=== PATIENT | female | born 1945 | race Caucasian/White ===

== ENCOUNTER → 2017-12-05 09:04 | Outpatient (CLI) | payer MEDICARE, SELFPAY ==
[2017-12-05 11:32] LABS: Microalbumin,Random Urine 16.8 mg/L (NO RANGE EST.); Microalbumin:Creatinine Ratio 13.2 mg/g CRE (<30 mg/g CRE)
[2017-12-05 12:03] LABS: AST(SGOT) 9 U/L (15-37); Alanine Aminotransfer ALT/SGPT 21 U/L (13-56); Albumin, Serum 3.3 g/dL (3.2-5.0); Alkaline Phosphatase 68 U/L (45-117); Anion Gap 7 (5-15); BUN 18 mg/dL (7-18); BUN/Creat Ratio 32.1 RATIO (10-20); Bilirubin, Direct 0.11 mg/dL (0.00-0.30); Calcium,Total 8.4 mg/dL (8.5-10.1); Chloride 106 mmol/L (98-107); Cholesterol 167 mg/dL (200); Creatinine, Serum 0.56 mg/dL (0.55-1.02); EST Glomerular Filtration Rate 113 mL/min (>60); Est Glom Filt Rate - Afr Amer 137 mL/min (>60); Globulin 3.9 g/dL (2.2-4.2); Glucose 178 mg/dL (70-110); High Density Lipoprotein 54 mg/dL; Protein, Total 7.2 g/dL (6.4-8.2); Sodium Level 141 mmol/L (136-145); Thyroid Stim Hormone (TSH) 2.26 uIU/mL (0.358-3.74); Triglycerides 178 mg/dL; Very Low Density Lipoprotein 36 mg/dL (5-40)
== END ==
PROVIDERS: Family Provider Family Medicine; PCP Family Medicine; Visit Provider Family Medicine
DX: E11.9 Type 2 diabetes mellitus without complications (principal)
CPT/HCPCS: 36415; 80048; 80061; 80076; 82043; 82570; 84443

== ENCOUNTER → 2018-11-08 07:43 | Outpatient (CLI) | payer MEDICARE, SELFPAY ==
[2018-11-08 10:42] LABS: AST(SGOT) 16 U/L (15-37); Alanine Aminotransfer ALT/SGPT 28 U/L (13-56); Albumin, Serum 3.5 g/dL (3.2-5.0); Alkaline Phosphatase 57 U/L (45-117); Anion Gap 9 (5-15); BUN 16 mg/dL (7-18); BUN/Creat Ratio 25.5 RATIO (10-20); Calcium,Total 9.1 mg/dL (8.5-10.1); Chloride 103 mmol/L (98-107); Cholesterol 165 mg/dL (200); Creatinine, Serum 0.63 mg/dL (0.55-1.02); EST Glomerular Filtration Rate 99 mL/min (>60); Est Glom Filt Rate - Afr Amer 120 mL/min (>60); Globulin 3.9 g/dL (2.2-4.2); Glucose 185 mg/dL (74-106); High Density Lipoprotein 58 mg/dL; Potassium 3.9 mmol/L (3.5-5.1); Protein, Total 7.4 g/dL (6.4-8.2); Sodium Level 141 mmol/L (136-145); Triglycerides 119 mg/dL; Very Low Density Lipoprotein 24 mg/dL (5-40)
[2018-11-08 10:49] LABS: Microalbumin,Random Urine 81.2 mg/L (NO RANGE EST.)
== END ==
PROVIDERS: Family Provider Family Medicine; PCP Family Medicine; Referring Provider Family Medicine; Visit Provider Family Medicine
DX: E11.9 Type 2 diabetes mellitus without complications (principal)
CPT/HCPCS: 36415; 80048; 80061; 80076; 82043; 82570

== ENCOUNTER 2019-05-20 14:01 | Inpatient (IN) | payer MEDICARE, SELFPAY ==
[2019-05-20] VITALS (9 sets, daily range): BP systolic 113–138; BP diastolic 40–62; PULSE 79–99; RESP 16–20; TEMP 36.6–36.7; O2SAT 95–99; BMI 47.2; BMI 45.8; BMI 45.9
[2019-05-20 14:21] LABS: Bedside Glucose 247 mg/dL (70-110)
--- NOTE | 2019-05-20 14:24 | CT_ITS ---
STUDY: CT BRAIN WITHOUT CONTRAST REASON FOR EXAM: Female, 73 years old. Fall. Syncope. RADIATION DOSAGE (If Supplied By Facility): CTDIvol = ( 44.99 ) mGy, DLP = ( 745.49 ) mGycm TECHNIQUE: Transaxial CT imaging of the brain was performed without administration of intravenous contrast material. Individualized dose optimization techniques were used for this CT. COMPARISON: None. FINDINGS: There is no acute bleed or infarct. There are chronic ischemic and atrophic changes. The ventricles are normal in configuration. There is no hydrocephalus. The visualized paranasal sinuses are clear. The mastoid air cells are well aerated. There is no skull fracture. CT/Brain/Head without Contrast IMPRESSION: No acute intracranial abnormality. Chronic ischemic and atrophic changes. Electronically Signed: Yuri Perez, at 15:08 EDT Tel , Service support ,
--- NOTE | 2019-05-20 14:24 | RAD_ITS ---
STUDY: X-RAY CHEST REASON FOR EXAM: Female, 73 years old. Shortness of breath TECHNIQUE: Frontal view of the chest COMPARISON: None. FINDINGS: The lungs are clear. There are no pleural effusions. There is no pneumothorax. The heart is mildly enlarged. The visualized osseous structures are within normal limits. RAD/Chest 1 View (Portable) IMPRESSION: Mild cardiomegaly. Clear lungs. Electronically Signed: Yuri Perez, at 15:11 EDT Tel , Service support ,
--- NOTE | 2019-05-20 14:25 | EKG12_ITS ---
Test Reason : SNYCOPE Blood Pressure : / mmHG Vent. Rate : 097 BPM Atrial Rate : 097 BPM P-R Int : 182 ms QRS Dur : 130 ms QT Int : 400 ms P-R-T Axes : 021 -13 098 degrees QTc Int : 508 ms Normal sinus rhythm Left bundle branch block Abnormal ECG Confirmed by JERILYN DE ANDA, ARCHIE ([id number]), purchasing expeditor ABILIO JOYCE ([id number]) on 05/22/2019 1:51:37 PM Referred By: RIGO Confirmed By:ARCHIE JEAN-BAPTISTE MD
--- NOTE | 2019-05-20 14:27 | ED.VIS.GEN ---
History of Present Illness Chief Complaint: Dizziness Informant: Patient, Family, [employer] Onset: Today Context: Sudden Onset Timing: Continuous Quality: lightheaded Location: head Current Severity: Moderate Maximum Severity: Severe Worsened by: nothing Relieved by: nothing Associated Symptoms: Lightheaded, left ankle pain, nausea and vomiting Narrative: 73-year-old female presents by squad after syncopal episode. 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 Estimated loss of consciousness 2 minutes by her family who was with her at the time. There is no seizure-like activity. She did not have any prodromal chest pain palpitations or shortness of breath. She was not postictal or incontinent. Patient complains of lightheadedness currently and has had one episode of vomiting. She is not having a headache. No chest pain or shortness of breath. No abdominal pain or back pain. She does complain of left ankle pain from the fall. She denies any other injuries from the fall. She denies any melena or hematochezia, recent medication changes, urinary symptoms or recent illness or hospitalization. She does admit over the past several days has had multiple episodes of loose stool but has not seen blood or noticed black stool. She is not on anticoagulation. Prior similar symptoms: Yes Recent Illness/Hospitalization: No Past Medical History - Allergies and Home Meds Allergies/Adverse Reactions: Allergies Penicillins [PCN] Allergy (Verified 05/20/19 14:11) Rash Primary Care Physician: Trevor Samuel MD [Primary Care Provider] - Prior records reviewed: Yes Past Medical History: - - Diabetes mellitus Lives: With Family Smoking Status: Former smoker Alcohol: None Drugs: None Review of Systems All systems negative except as indicated Gastrointestinal: Reports: Nausea, Vomiting Physical Exam Vital Signs/Narrative: Vital Signs Temp Pulse Resp Pulse Ox 05/20/19 14:03 97.8 F 99 20 H 96 Inital Vital Signs reviewed: Yes General: Well nourished, Well developed, No Acute Distress Head: Normocephalic, Atraumatic Eyes: Perrl, EOMI ENT: Moist mucous membranes Neck: Supple, Nontender Cardiovascular: Regular rate, Regular rhythm Respiratory: No distress, CTA bilaterally, Chest nontender Abdomen: Soft, Nontender, Nondistended, Normal bowel sounds, No masses Back: Nontender Extremities: Nontender, No edema Skin: Normal color, No rash Neurological: Alert, Oriented x3, Cranial nerves II-XII grossly intact, Normal Strength, Normal Sensation Diagnostic/Tx/Re-eval Chest X-Ray - ED: 1 View, Read by ED Physician, Read by Radiologist, No Acute Disease - Rhythm Strip Rhythm Strip: Sinus Rhythm Rate: 97 Ectopy: None - EKG Initial EKG Interpretation: Sinus Rhythm, No Acute Injury Pattern, LBBB Prior: No Prior - Medical Decision Making EKG was sinus rhythm rate of 97 bpm the patient has a left bundle branch block. Previous EKG is available. Vital signs are stable. Patient was given IV fluids. Patient given 1 dose of IV Zofran. Her laboratory work-up including CBC CMP and troponin unremarkable. Chest x-ray shows no acute abnormalities. CT brain shows chronic changes but no acute findings. She has a nondisplaced distal fibular fracture on her left ankle x-ray. Patient feels improved after the Zofran. Patient has no history of syncope. At this time we will admit for further treatment and evaluation secondary to this. She was placed in a walking boot for her ankle fracture. Hospitalist contacted for admission. Patient is hemodynamically stable at this time. ED Disposition - Plan for ED Patient: Disposition: Acute Care Hospital [facility] Diagnosis: Closed left fibular fracture, Syncope, Hyperlipidemia, Hypertension, Type 2 diabetes mellitus Referrals: Trevor Samuel MD [Primary Care Provider] -
--- NOTE | 2019-05-20 14:29 | RAD_ITS ---
STUDY: X-RAY - LEFT ANKLE REASON FOR EXAM: Female, 73 years old. Pain TECHNIQUE: 3 view(s) of the ankle. COMPARISON: None. FINDINGS: There is an oblique fracture of the distal fibula with overlying soft tissue swelling. The remainder of the visualized osseous structures are intact. There are no radiodense foreign bodies. RAD/Ankle min 3 Views IMPRESSION: Oblique fracture of the distal fibula with overlying soft tissue swelling. Electronically Signed: Yuri Perez, at 15:09 EDT Tel , Service support ,
[2019-05-20] MEDS: Ondansetron 4 MG/2 ML Vial IV (14:32)
[2019-05-20 14:36] LABS: Absolute Lymphocyte Count 2.11 X10^3/ul (0.83-4.51); Absolute Neutrophil Count 7.5 X10^3/uL (2.0-7.7); Basophil# 0.02 X10^3/uL; Basophil% 0.2 % (0-1); Eosinophil# 0.08 X10^3/uL; Eosinophils% 0.8 % (0-5); Hematocrit 40.7 % (37-47); Hemoglobin 13.6 g/dl (12.0-15.0); Lymphocyte # 2.11 X10^3/ul (4.0); Lymphocyte % 19.9 % (19-41); Mean Corp Hgb Conc 33.4 g/gl (32-36); Mean Corpuscular Hgb 30.3 pg (27.0-32.0); Mean Corpuscular Volume 90.6 fL (81-99); Mean Platelet Vol. 10.5 fl (6.2-12.0); Monocyte# 0.88 X10^3/uL; Monocyte% 8.3 % (0-10); Neutrophil # 7.48 X10^3/uL (2.7-7.7); Neutrophil % 70.6 % (47-70); POSITIVE COUNT NO; POSITIVE DIFFERENTIAL NO; POSITIVE MORPHOLOGY NO; Platelet Count 223 K/mm3 (150-450); RBC Distribution Width CV 13.8 % (11.6-14.6); RBC Distribution Width SD 45.4 fl (35.1-43.9); Red Blood Count 4.49 M/mm3 (4.2-5.4); White Blood Count 10.6 K/mm3 (4.4-11.0)
[2019-05-20 14:48] LABS: AST(SGOT) 15 U/L (15-37); Alanine Aminotransfer ALT/SGPT 24 U/L (13-56); Albumin, Serum 3.3 g/dL (3.2-5.0); Alkaline Phosphatase 50 U/L (45-117); Anion Gap 10 (5-15); BUN 10 mg/dL (7-18); BUN/Creat Ratio 14.2 RATIO (10-20); Calcium,Total 8.9 mg/dL (8.5-10.1); Chloride 101 mmol/L (98-107); EST Glomerular Filtration Rate 87 mL/min (>60); Est Glom Filt Rate - Afr Amer 105 mL/min (>60); Estimated Creatinine Clearance 40.81 ml/min; Globulin 3.4 g/dL (2.2-4.2); Glucose 209 mg/dL (74-106); Potassium 3.6 mmol/L (3.5-5.1); Protein, Total 6.7 g/dL (6.4-8.2); Sodium Level 134 mmol/L (136-145)
--- NOTE | 2019-05-20 15:47 | PCM.HP.STD ---
<Augusto Plunkett - Last Filed: 05/20/19 15:47> Problem List (1) Syncope Status: Acute (2) Closed left fibular fracture Status: Acute (3) Hiatal hernia Status: Chronic (4) Hyperlipidemia Status: Chronic (5) Hypertension Status: Chronic (6) Type 2 diabetes mellitus Status: Chronic (7) Morbid obesity Status: Chronic History of Present Illness Date of Admission: 05/20/19 Chief Complaint: syncope The patient is a 73 year old F with pmhx of HTN, HLD, hiatal hernia, and DMt2 with morbid obesity, who presented to the ER after a syncopal event today. 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 While working she felt dehydrated, then became lightheaded. She went to sit down and as she laid her head down she lost consciousness. Her son witnessed this. She struck the left posterior aspect of her head and her left ankle on the way down. She was on the ground out for two minutes before spontaneously regaining conscious. She did not have tongue biting, shaking, or loss of continence. She has no headache. She is not post ictal. No seizure or stroke hx. She has passed out before last episode in January 2019 however it was due to hypoglycemia. EMS came to pick her up and noted her pulse was 38. She was brought to the ER and was found to have EKG with LBBB (not clear if this is old or new), left ankle fracture. She states she has no further LH or dizziness. She has a feeling of heartburn ongoing. She has 8/10 left ankle pain. [] Past Medical History Past Medical History (Chronic Problems): Chronic Problems Hiatal hernia (Chronic) Morbid obesity (Chronic) Type 2 diabetes mellitus (Chronic) Hypertension (Chronic) Hyperlipidemia (Chronic) Allergies Penicillins [PCN] Allergy (Verified 05/20/19 14:11) Rash Home Medications: Ambulatory Orders Medication Instructions Recorded Glimepiride 4 mg DAILY 05/20/19 Lisinopril [Zestril] 10 mg DAILY 05/20/19 Lovastatin 20 mg DAILY 05/20/19 Metformin HCl 1,000 mg BID 05/20/19 Semaglutide [Ozempic] 0.5 mg QWEEK 05/20/19 Surgical History: hysterectomy, - - right ankle repair Psychiatric History: No pertinent psych hx 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 Denies: Chest Pain, Edema, Palpitations Respiratory: Denies: Cough, Shortness of breath at rest, Sputum production Gastrointestinal: Denies: Abdominal Pain, Nausea, Vomiting Genitourinary: Denies: Dysuria Musculoskeletal: Denies: Joint Pain, Joint Tenderness Skin: Denies: Rash, Wounds Neurological: Denies: Numbness, Tingling, Focal weakness Psychiatric: Denies: Anxiety, Depression, Homicidal Ideations, Suicidal Ideations Hematologic/ Lymphatic: Denies: Easy Bruising, Easy Bleeding VTE Information - Inpt Only VTE Present on Admission: No VTE Mechan Device Prophylaxis: None VTE Pharm Prophylaxis ordered?: Yes Patient Problems: Active and Suspected Problems Syncope (Acute) Closed left fibular fracture (Acute) - Physical Exam General: Alert, Oriented x3, Cooperative HEENT: Atraumatic, PERRLA, EOMI, Normocephalic Neck: Supple, No JVD, Negative Carotid Bruits Lungs: Clear to auscultation, Normal air movement Cardiovascular: Regular rate, No murmurs Abdomen: Bowel Sounds Present, Soft, Non Tender, Obese - morbidly Extremities: No edema, Capillary Refill Less than 3 Seconds Skin: No rashes, No breakdown Musculoskeletal: No Tenderness to Palpation of Joints or Extremities, - - left ankle swelling, tenderness, ROM limited 2/2 pain. sensation and pulses intact. Neurological: Cranial nerves II-XII grossly intact Psych/Mental Status: Normal Affect, Appropriate, Alert and oriented to time, place, person, mood and affect Vital Signs Temp Pulse Resp BP Pulse Ox 97.8 F 92 16 113/40 L 99 05/20/19 14:03 05/20/19 15:00 05/20/19 15:00 05/20/19 15:00 05/20/19 15:00 Oxygen Delivery Method Room Air Weight: 258 lb 6.108 oz Body Mass Index (BMI) 47.2 Finger Stick Blood Glucose 247 Laboratory Tests Past 24 Hrs 05/20/19 05/20/19 14:15 14:15 WBC 10.6 RBC 4.49 Hgb 13.6 Hct 40.7 MCV 90.6 MCH 30.3 MCHC 33.4 RDW 13.8 RDW Differential 45.4 H Plt Count 223 MPV 10.5 Immature Gran % (Auto) 0.200 Neut % (Auto) 70.6 H Lymph % (Auto) 19.9 Milam % (Auto) 8.3 Eos % (Auto) 0.8 Baso % (Auto) 0.2 Absolute Neuts (auto) 7.5 Absolute Lymphs (auto) 2.11 Total Counted Not Reportable Sodium 134 L Potassium 3.6 Chloride 101 Carbon Dioxide 23.0 Anion Gap 10 BUN 10 Creatinine 0.70 Estim Creat Clear Calc 40.81 Est GFR (MDRD) Af Amer 105 Est GFR (MDRD) Non-Af 87 BUN/Creatinine Ratio 14.2 Glucose 209 H Calcium 8.9 Total Bilirubin 0.50 AST 15 ALT 24 Alkaline Phosphatase 50 Troponin I < 0.015 Total Protein 6.7 Albumin 3.3 Globulin 3.4 Albumin/Globulin Ratio 1.0 POC Glucose 05/20/19 14:16 POC Glucose 247 H Assessment/Plan All Active Problems Syncope (Acute) Closed left fibular fracture (Acute) 1. Syncope - no hypoglycemia, no stroke symptoms, no seizure symptoms. Bradycardia noted on EMS arrival currently none. Troponin negative. Pt felt dehydrated and was working all morning so possibly vasovagal. LBBB on EKG - obtain prior for comparison from PCP tomorrow. Has indegestion too - cycle cardiac enzymes, maintain on tele, and obtain Echo. Check orthostatic vitals. -CT brain negative, CXR neg. 2. Acute oblique left distal fibula fx - pain management, RICE, PTOT, ortho consult 3. HTN / HLD - home meds 4. DMt2 - SSI, hold orals 5. Hx Hiatal hernia - not on ppi DVT ppx: lovenox DC planning: PTOT This patient was seen by Augusto Plunkett PA-C under the supervision of Dr. Betancourt. <Erasto Betancourt - Last Filed: 05/20/19 16:10> History of Present Illness The patient is a 73 year old F [] Past Medical History Allergies Penicillins [PCN] Allergy (Verified 05/20/19 14:11) Rash - Physical Exam Vital Signs Temp Pulse Resp BP Pulse Ox 97.8 F 92 16 113/40 L 99 05/20/19 14:03 05/20/19 15:00 05/20/19 15:00 05/20/19 15:00 05/20/19 15:00 Oxygen Delivery Method Room Air Weight: 258 lb 6.108 oz Body Mass Index (BMI) 47.2 Finger Stick Blood Glucose 247 Laboratory Tests Past 24 Hrs 05/20/19 05/20/19 14:15 14:15 WBC 10.6 RBC 4.49 Hgb 13.6 Hct 40.7 MCV 90.6 MCH 30.3 MCHC 33.4 RDW 13.8 RDW Differential 45.4 H Plt Count 223 MPV 10.5 Immature Gran % (Auto) 0.200 Neut % (Auto) 70.6 H Lymph % (Auto) 19.9 Milam % (Auto) 8.3 Eos % (Auto) 0.8 Baso % (Auto) 0.2 Absolute Neuts (auto) 7.5 Absolute Lymphs (auto) 2.11 Total Counted Not Reportable Sodium 134 L Potassium 3.6 Chloride 101 Carbon Dioxide 23.0 Anion Gap 10 BUN 10 Creatinine 0.70 Estim Creat Clear Calc 40.81 Est GFR (MDRD) Af Amer 105 Est GFR (MDRD) Non-Af 87 BUN/Creatinine Ratio 14.2 Glucose 209 H Calcium 8.9 Total Bilirubin 0.50 AST 15 ALT 24 Alkaline Phosphatase 50 Troponin I < 0.015 Total Protein 6.7 Albumin 3.3 Globulin 3.4 Albumin/Globulin Ratio 1.0 POC Glucose 05/20/19 14:16 POC Glucose 247 H Assessment/Plan Hospitalist note: I am seeing this patient in conjunction with Augusto Plunkett. I independently seen and examined the patient. History and physical, laboratory data and imaging studies reviewed and I concur with the above admission and treatment plan. Patient presented to the emergency room because of syncopal episode. 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 Her son mentioned that she struck her left posterior head and left ankle on the way down. She lost her consciousness for about 2 minutes and she regained her consciousness after 2 minutes approximately. There was no reported seizure activity, tongue biting or stool or urine incontinence. Reportedly according to the EMS, her heart rate was 38 bpm. She complained of heartburn and she threw up twice. In the emergency department, her vital signs were stable, heart rate has been in the 80s to 90s. Her routine blood work was unremarkable. Her EKG revealed normal sinus rhythm, left bundle branch block, no acute ischemic changes and no old EKG to compare. Troponin was negative. LFT was normal. CT scan brain showed no acute findings. Chest x-ray showed myocardial, no acute findings. Patient complained of left ankle pain, x-ray, and revealed oblique fracture of the distal left fibula. She is being admitted for syncope and left fibular fracture. - Physical Exam General: Alert, Oriented x3, Cooperative, No apparent distress. HEENT: Atraumatic, PERRLA, EOMI. Neck: Supple, No JVD, Negative Carotid Bruits, Trachea Midline, Thyroid Normal. Lungs: Clear to auscultation, Normal air movement, No rhonchi, No wheeze, No rales. Cardiovascular: Regular rate, Regular Rhythm, Normal S1, Normal S2, PMI Normal. Abdomen: Bowel Sounds Present, Soft, Non Tender, Non-Distended, No Hepato-splenomegaly. Extremities: No clubbing, No cyanosis, No edema Skin: No rashes, No breakdown Neurological: Cranial nerves are intact, normal power and tone, neuro grossly intact Vital Signs are stable. Assessment and plan: #1 syncopal episode: Could be due to vasovagal syncope. Patient has been walking on morning and she reported diarrhea over the last couple of days. Also, heart rate was in the 38 by EMS upon arrival. Since she was in the ER, heart has been stable. Blood pressure stable. She is afebrile. EKG reviewed as above as well as CT scan brain. Patient complains of heartburn. Plan: Admit to PCU for observation, cardiac monitoring, serial cardiac enzymes, obtain old EKG from PCPs office, 2D echocardiogram, IV fluids, orthostatic vitals, TSH, start Protonix, Mylanta as needed. #2 acute traumatic oblique fracture of the distal left fibula: Plan for OxyIR and IV morphine as needed, orthopedic surgery consult. #3 other chronic medical problems, stable, continue current medication as above. This note was generated with [employer] software. It may contain incorrect words, spelling, and punctuation that were not noted in checking the note before signing. Code Visit OBSV E&M: 56507 Initial observation care L3
[2019-05-20] MEDS: Famotidine 20 MG Tablet 40 MG PO (15:50)
[2019-05-20 16:07] LABS: Bacteria 0 SEEN /hpf (None Seen); Mucous, Urine 0 SEEN /hpf (<or=2+); Red Blood Cells-Urine 0 SEEN /hpf (0-5); White Blood Cells 0 SEEN /hpf (0-5)
[2019-05-20 16:09] LABS: Color, Urine Yellow (Yellow); Glucose, Dipstick 1000 mg/dl (Normal); Leukocyte Esterase-Dipstick Negative /ul (Negative); Nitrite-Dipstick Negative (Negative); Occult Blood-Urine Negative /ul (Negative); Protein-Dipstick 30 mg/dl (Negative); Urine Bilirubin Dipstick Negative (Negative); Urine Clarity Clear (Clear); Urine Urobilinogen Normal (Normal)
[2019-05-20 16:11] LABS: Ketone-Dipstick 150 mg/dl (Negative)
[2019-05-20 16:15] LABS: Squamous Epithelial Cells - UA 0-5 SEEN /hpf (5-10)
--- NOTE | 2019-05-20 17:10 | ECHOD_ITS ---
Reason For Study: SYNCOPE Procedure This was a 2D Doppler, Color Flow transthoracic echocardiogram. Exam performed portable in patient room. Left Ventricle Normal LV size. The estimated ejection fraction is 55 %. Stage 1 diastolic dysfunction. No regional wall motion abnormalities noted. Right Ventricle Normal RV size. Normal systolic function. Atria The left atrium is moderately enlarged. Normal right atrium. Mitral Valve Normal mitral valve. Tricuspid Valve Normal tricuspid valve. Mild (1+) tricuspid valve insufficiency. Pulmonary artery systolic pressure is 28 mmHg. Aortic Valve Normal aortic valve. Pulmonic Valve Normal pulmonic valve. Great Vessels Normal aortic root. The pulmonary artery is normal size. Normal inferior vena cava. Pericardium/Pleural No pericardial effusion. MMode/2D Measurements & Calculations LVIDd: 4.7 cm IVSd: 0.98 cm Ao root diam: 3.5 cm LVIDs: 3.3 cm LVPWd: 0.84 cm RVDd: 4.1 cm FS: 31.2 % LAV(MOD-bp): 73.1 ml LA A4 area: 25.2 cm2 LA dimension(2D): 4.1 cm LAV(MOD-bp) Indexed: 34.3 ml/m2 LAV(MOD-sp2): 58.6 ml LAV(MOD-sp4): 78.1 ml RA A4 area: 19.3 cm2 Time Measurements MV dec time: 0.23 sec Doppler Measurements & Calculations MV E max ifeanyi: 110.1 cm/sec Lat Peak E' Ifeanyi: 8.3 cm/sec Med Peak E' Ifeanyi: 4.4 cm/sec MV A max ifeanyi: 131.7 cm/sec E/E' lat: 13.2 E/E' med: 25.1 MV E/A: 0.84 Ao V2 max: 130.4 cm/sec LV V1 max: 107.5 cm/sec PA V2 max: 116.4 cm/sec Ao max P.8 mmHg LV V1 max P.6 mmHg PI end-d ifeanyi: 90.1 cm/sec TR max ifeanyi: 245.5 cm/sec TR max P.1 mmHg Interpretation Summary Normal LV size. The estimated ejection fraction is 55 %. Mild (1+) tricuspid valve insufficiency. Pulmonary artery systolic pressure is 28 mmHg. The left atrium is moderately enlarged. Stage 1 diastolic dysfunction. Ordering Physician: Erasto Betancourt Referring Physician: KOLBY RUSSO Performed By: Luzmaria Garland RDCS, RVT
[2019-05-20 17:50] LABS: Bedside Glucose 186 mg/dL (70-110)
[2019-05-20 17:54] LABS: Thyroid Stim Hormone (TSH) 1.67 uIU/mL (0.358-3.74)
[2019-05-20] MEDS: Insulin Lispro 100 UNIT/ML INSULN.PEN SC (18:18)
[2019-05-20] MEDS: 0.9% Normal Saline 1,000 ML 100 ML IV (18:18)
--- NOTE | 2019-05-20 18:59 | EKG12_ITS ---
Test Reason : CP Blood Pressure : / mmHG Vent. Rate : 094 BPM Atrial Rate : 094 BPM P-R Int : 194 ms QRS Dur : 128 ms QT Int : 410 ms P-R-T Axes : 041 -34 079 degrees QTc Int : 512 ms Normal sinus rhythm Left axis deviation Left bundle branch block Abnormal ECG When compared with ECG of 20-MAY-2019 14:07, MANUAL COMPARISON REQUIRED, DATA IS UNCONFIRMED Confirmed by JERILYN DE ANDA, ARCHIE ([id number]), editor department ABILIO JOYCE ([id number]) on 05/23/2019 11:19:31 AM Referred By: BIANCA Confirmed By:ARCHIE JEAN-BAPTISTE MD
[2019-05-20] MEDS: Acetaminophen 325 MG Tablet 650 MG PO (19:05)
[2019-05-20] MEDS: Mag Hydrox/Al Hydrox/Simeth 30 ML UDC PO (21:42)
[2019-05-20] MEDS: Morphine 2 MG/ML Syringe IV (21:42)
[2019-05-20] MEDS: Atorvastatin Calcium 10 MG Tablet 5 MG PO (21:43)
[2019-05-20 22:01] LABS: Bedside Glucose 123 mg/dL (70-110)
[2019-05-21] VITALS (12 sets, daily range): BP systolic 118–123; BP diastolic 51–76; PULSE 68–85; RESP 16–18; TEMP 36.3–37.1; O2SAT 95–97
[2019-05-21] MEDS: Ondansetron 4 MG/2 ML Vial IV ×4 (00:06→23:00)
[2019-05-21] MEDS: Morphine 2 MG/ML Syringe IV ×2 (00:06→04:12)
[2019-05-21] MEDS: 0.9% NaCl Peripheral Flush Adult/Peds IV (00:07)
[2019-05-21] MEDS: 0.9% Normal Saline 1,000 ML 100 ML IV (04:15)
[2019-05-21] MEDS: Insulin Lispro 100 UNIT/ML INSULN.PEN SC ×2 (07:02→11:48)
[2019-05-21 07:10] LABS: Bedside Glucose 174 mg/dL (70-110)
[2019-05-21] MEDS: Glimepiride 4 MG Tablet PO (08:25)
[2019-05-21] MEDS: Enoxaparin 40 MG/0.4 ML Syringe SC (09:55)
[2019-05-21] MEDS: Pantoprazole Sodium 40 MG Tablet PO (09:55)
[2019-05-21] MEDS: Lisinopril 10 MG Tablet PO (09:55)
[2019-05-21] MEDS: metFORMIN HCl 1,000 MG Tablet 1000 MG PO ×2 (09:55→16:08)
[2019-05-21 11:15] LABS: Bedside Glucose 151 mg/dL (70-110)
--- NOTE | 2019-05-21 12:14 | PN_ITS ---
Patient Problems: Active and Suspected Problems Syncope (Acute) Closed left fibular fracture (Acute) Subjective: Pt resting comfortably in bed NAD. No dizziness/LH. Reports a brief episode of CP this AM while in bed. Midsternal radiating in to the back with associated nausea. Left leg pain improved. None at rest. No palp. Had echo this AM. - Physical Exam General: Alert, Oriented x3, Cooperative HEENT: Atraumatic, PERRLA, EOMI, Normocephalic Neck: Supple, No JVD, Negative Carotid Bruits Lungs: Clear to auscultation, Normal air movement Cardiovascular: Regular rate, Murmur - unchanged Abdomen: Bowel Sounds Present, Soft, Non Tender Extremities: No edema, Capillary Refill Less than 3 Seconds Skin: No rashes, No breakdown Musculoskeletal: No Tenderness to Palpation of Joints or Extremities Neurological: Cranial nerves II-XII grossly intact Psych/Mental Status: Normal Affect, Appropriate Vital Signs Temp Pulse Resp BP Pulse Ox 97.4 F L 69 18 122/65 H 97 05/21/19 08:12 05/21/19 08:12 05/21/19 08:12 05/21/19 08:12 05/21/19 08:12 Oxygen Delivery Method Room Air Weight: 250 lb 14.177 oz Body Mass Index (BMI) 45.8 Finger Stick Blood Glucose 247 Intake and Output for Last 24 Hours 05/19/19 05/20/19 05/21/19 23:59 23:59 23:59 Intake Total 578 / 578 2511 / 2511 Output Total 1900 / 1900 Balance 578 / 578 611 / 611 Laboratory Tests Past 24 Hrs 05/20/19 05/20/19 05/20/19 14:15 14:15 14:15 WBC 10.6 RBC 4.49 Hgb 13.6 Hct 40.7 MCV 90.6 MCH 30.3 MCHC 33.4 RDW 13.8 RDW Differential 45.4 H Plt Count 223 MPV 10.5 Immature Gran % (Auto) 0.200 Neut % (Auto) 70.6 H Lymph % (Auto) 19.9 Band[place] % (Auto) 8.3 Eos % (Auto) 0.8 Baso % (Auto) 0.2 Absolute Neuts (auto) 7.5 Absolute Lymphs (auto) 2.11 Total Counted Not Reportable Sodium 134 L Potassium 3.6 Chloride 101 Carbon Dioxide 23.0 Anion Gap 10 BUN 10 Creatinine 0.70 Estim Creat Clear Calc 40.81 Est GFR (MDRD) Af Amer 105 Est GFR (MDRD) Non-Af 87 BUN/Creatinine Ratio 14.2 Glucose 209 H Calcium 8.9 Total Bilirubin 0.50 AST 15 ALT 24 Alkaline Phosphatase 50 Troponin I < 0.015 Total Protein 6.7 Albumin 3.3 Globulin 3.4 Albumin/Globulin Ratio 1.0 TSH 1.67 Urine Color Urine Clarity Urine pH Ur Specific [place] Urine Protein Urine Glucose (UA) Urine Ketones Urine Occult Blood Urine Nitrite Urine Bilirubin Urine Urobilinogen Ur Leukocyte Esterase Urine RBC Urine WBC Ur Squamous Epith Cells Urine Bacteria Urine Mucus 05/20/19 05/20/19 05/20/19 15:55 17:50 20:30 WBC RBC Hgb Hct MCV MCH MCHC RDW RDW Differential Plt Count MPV Immature Gran % (Auto) Neut % (Auto) Lymph % (Auto) [place] % (Auto) Eos % (Auto) Baso % (Auto) Absolute Neuts (auto) Absolute Lymphs (auto) Total Counted Sodium Potassium Chloride Carbon Dioxide Anion Gap BUN Creatinine Estim Creat Clear Calc Est GFR (MDRD) Af Amer Est GFR (MDRD) Non-Af BUN/Creatinine Ratio Glucose Calcium Total Bilirubin AST ALT Alkaline Phosphatase Troponin I < 0.015 < 0.015 Total Protein Albumin Globulin Albumin/Globulin Ratio TSH Urine Color Yellow Urine Clarity Clear Urine pH 5.0 Ur Specific [place] 1.020 Urine Protein 30 H Urine Glucose (UA) 1000 H Urine Ketones 150 H Urine Occult Blood Negative Urine Nitrite Negative Urine Bilirubin Negative Urine Urobilinogen Normal Ur Leukocyte Esterase Negative Urine RBC 0 SEEN Urine WBC 0 SEEN Ur Squamous Epith Cells 0-5 SEEN Urine Bacteria 0 SEEN Urine Mucus 0 SEEN POC Glucose 05/21/19 05/21/19 05/20/19 11:11 06:59 21:48 POC Glucose 151 H 174 H 123 H 05/20/19 05/20/19 17:44 14:16 POC Glucose 186 H 247 H Medical Necessity - Tobacco Use Smoking Status: Former smoker Tobacco Use: Non-smoker Assessment/Plan All Active Problems Syncope (Acute) Closed left fibular fracture (Acute) 1. Syncope - no hypoglycemia, no stroke symptoms, no seizure symptoms. Bradycardia noted on EMS arrival - 38bpm. currently none. No brenda overnight. Trop neg. Chest pain this AM. No prior EKGs at PCPs office. Consult Cardiology. Echo pending. CT brain with chronic changes. 2. Acute oblique left distal fibula fx - pain management, LEA, PTOT, ortho consult pending. 3. HTN / HLD - home meds 4. DMt2 with morbid obesity - SSI, hold orals 5. Hx Hiatal hernia - not on ppi. May be contributing to CP this AM. DVT ppx: lovenox DC planning: PTOT This patient was seen by Augusto Plunkett PA-C under the supervision of Dr. Mitchell.
[2019-05-21] MEDS: oxyCODONE 5 MG Tablet PO ×2 (16:04→22:59)
[2019-05-21 16:15] LABS: Bedside Glucose 91 mg/dL (70-110)
--- NOTE | 2019-05-21 16:31 | CON.PCM_ITS ---
Reason for Consult Date of Consultation: 05/21/19 Reason for Consultation: Syncopal episode History of Present Illness: The patient is a 73 year old F with medical history consisting of of HTN, HLD, hiatal hernia, and DMt2 with morbid obesity, who presented to the ER after a syncopal event today. 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 While working she felt dehydrated, then became lightheaded. She went to sit down and as she laid her head down she lost consciousness. Her son witnessed this. She struck the left posterior aspect of her head and her left ankle on the way down. She was on the ground out for two minutes before spontaneously regaining conscious. She did not have tongue biting, shaking, or loss of continence. She has no headache. She is not post ictal. No seizure or stroke hx. She has passed out before last episode in January 2019 however it was thought to be due to hypoglycemia. EMS came to pick her up and noted her pulse was 38. She was brought to the ER and was found to have EKG with LBBB (not clear if this is old or new), left ankle fracture. She states she has no further LH or dizziness. She has a feeling of heartburn ongoing. Cardiology was called to see her due to the left bundle branch block. At this particular time she is asymptomatic. Past Medical History Allergies/Adverse Reactions: Allergies Penicillins [PCN] Allergy (Verified 05/20/19 14:11) Rash Home Medications: Ambulatory Orders Medication Instructions Recorded Glimepiride 4 mg PO DAILY 05/20/19 Lisinopril [Zestril] 10 mg PO DAILY 05/20/19 Lovastatin 20 mg PO DAILY 05/20/19 Metformin HCl 1,000 mg PO BID 05/20/19 [place]-3 Fatty Acids/Fish Oil [Fish 1 ea PO DAILY 05/20/19 Oil 1,000 mg Capsule] Semaglutide [Ozempic] 0.5 mg SQ QWEEK 05/20/19 Past Medical History (Chronic Problems): Chronic Problems Hiatal hernia (Chronic) Morbid obesity (Chronic) Type 2 diabetes mellitus (Chronic) Hypertension (Chronic) Hyperlipidemia (Chronic) Surgical History: hysterectomy, - - right ankle repair Psychiatric History: No pertinent psych hx 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 Denies: Chest Discomfort, Shortness of Breath, Orthopnea, PND, Peripheral Edema, Palpitations, Lightheadedness, Dizziness, Near Syncope Respiratory: Denies: Cough, Sputum Production, Hemoptysis Gastrointestinal: Denies: Hematemesis, Hematochezia, Melena Genitourinary: Denies: Dysuria, Hematuria Muscoloskeletal: Denies: Myalgias Skin: Denies: Rash Neurological: Reports: Dizziness Psychiatric: Denies: Anxiety Endocrine: Denies: Unexplained Weight Loss Hematologic/ Lymphatic: Denies: Anemia Subjectve: Pleasant lady in no apparent distress sitting in chair Objective: Vital Signs Temp Pulse Resp BP Pulse Ox 98.1 F 72 18 118/54 L 97 05/21/19 14:08 05/21/19 15:39 05/21/19 14:08 05/21/19 14:08 05/21/19 14:08 Oxygen Delivery Method Room Air Weight: 250 lb 14.177 oz Body Mass Index (BMI) 45.8 Finger Stick Blood Glucose 247 Intake and Output for Last 24 Hours 05/19/19 05/20/19 05/21/19 23:59 23:59 23:59 Intake Total 578 / 578 2511 / 2511 Output Total 1900 / 1900 Balance 578 / 578 611 / 611 General: Awake, Alert, Oriented x 3 HEENT: PERRL, EOMI, Sclera Non Icteric Neck: Supple, Good ROM, No Lymph Node Enlargement Lungs: Clear to auscultation Cardiovascular: Regular Rhythm, Normal S1, Normal S2, No Murmurs, No Rubs, No Gallops Vascular: No Carotid Bruits, Normal Femoral Pulses, Normal Radial Pulses, Normal Dorsalis Pedal Pulse, Normal Posterior Tibial Pulses Abdomen: Bowel Sounds Present, Soft, Non Tender, No HSM, No Organomegaly Extremities: No Cyanosis, No Clubbing, No edema Musculoskeletal: No Erythema Skin: No Rashes Lymphatic: No Lymph Node Enlargement Neurological: No Focal Motor or Sensory Deficit Psych/Mental Status: Appropriate 05/20/19 17:50: Troponin I < 0.015 05/20/19 20:30: Troponin I < 0.015 Rhythm: EKG: Sinus rhythm with a left bundle branch block. Initial EKG in the emergency squad demonstrated sinus rhythm with high-grade AV block and a left bundle branch block pattern. ECHO: Preserved left ventricular systolic function estimated ejection fraction 55%. Assessment/Plan 1. Syncope * Patient presents with syncope with a left bundle branch block the duration of which is unclear as well as intermittent high-grade AV block. I suspect that this is the etiology of her syncopal spell. She has not had previous documentation of this. Her most recent echocardiogram also demonstrates mild left ventricular ejection fraction. * My recommendation would be to proceed with a dual-chamber permanent pacemaker and then further work-up for her atypical chest pain can be entertained. I have discussed this with her as well as her relatives they understand and agreed to proceed and this would be undertaken in a.m. * * Thank you for allowing me to participate in the care of your patient. Please don't hesitate to call if any issues arise *
--- NOTE | 2019-05-21 17:05 | CON.PCM_ITS ---
Problem List (1) Closed left fibular fracture Status: Acute Reason for Consult Date of Consultation: 05/21/19 Reason for Consultation: Left ankle injury History of Present Illness: The patient is a 73 year old F [who was helping her son paint yesterday May 20, 2019. She felt like she was having a low blood sugar attacks so she decided to drink some iced tea. She was rounding the corner at that time and that is the last she remembers. Apparently she had a syncopal event at that time. She was taken to [facility] and x-rays revealed an ankle fracture. Orthopedics was consulted. She has been in a short leg posterior splint. The ankle pain is improving. It is primarily at the lateral aspect of the left ankle. The left ankle was normal and pain-free prior to the injury. She has been nonweightbearing. No knee or hip pain at this time. No new numbness or tingling into the left lower extremity. 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 No fevers, chills, other signs of infection. She is having a pacemaker placed tomorrow due to a third-degree heart block..] Past Medical History Past Medical History (Chronic Problems): Chronic Problems Hiatal hernia (Chronic) Morbid obesity (Chronic) Type 2 diabetes mellitus (Chronic) Hypertension (Chronic) Hyperlipidemia (Chronic) Allergies Penicillins [PCN] Allergy (Verified 05/20/19 14:11) Rash Home Medications: Ambulatory Orders Medication Instructions Recorded Glimepiride 4 mg PO DAILY 05/20/19 Lisinopril [Zestril] 10 mg PO DAILY 05/20/19 Lovastatin 20 mg PO DAILY 05/20/19 Metformin HCl 1,000 mg PO BID 05/20/19 [place]-3 Fatty Acids/Fish Oil [Fish 1 ea PO DAILY 05/20/19 Oil 1,000 mg Capsule] Semaglutide [Ozempic] 0.5 mg SQ QWEEK 05/20/19 Surgical History: hysterectomy, - - right ankle repair Psychiatric History: No pertinent psych hx DATA SECURITY CONSULTANT History: No pertinent DATA SECURITY CONSULTANT history Lives: Spouse/ Significant Other Smoking Status: Former smoker Tobacco Use: Non-smoker Alcohol: None Drugs: None - *Family History Maternal History Items: No pertinent history Paternal History Items: No pertinent history Review of Systems Comment: Review of systems are documented in the medical record electronically and were personally reviewed Patient Problems: Active and Suspected Problems Syncope (Acute) Closed left fibular fracture (Acute) Objective: The patient is alert and oriented x3. No acute distress at rest. Breathing easily without respiratory distress. She is resting supine in the hospital bed during the exam. Inspection of left lower extremity is without gross deformity. Gentle range of motion left hip without pain. Left knee without tenderness to palpation. Gentle range of motion left knee without pain. Without calf pain or tenderness bilaterally. There is an intact short leg posterior fiberglass splint on the left ankle. It is without evidence of pressure points or breakdown. Patient is able to gently flex and extend the toes. Capillary refill is less than 3 seconds. Sensation is intact to light touch. Neurovascularly intact. Through the splint she is without tenderness to palpation over the medial malleolus. She is with tenderness to palpation over the lateral malleolus re-creating chief complaint of left ankle pain. - Physical Exam Vital Signs Temp Pulse Resp BP Pulse Ox 98.1 F 72 18 118/54 L 97 05/21/19 14:08 05/21/19 15:39 05/21/19 14:08 05/21/19 14:08 05/21/19 14:08 Oxygen Delivery Method Room Air Weight: 113.8 kg Body Mass Index (BMI) 45.8 Finger Stick Blood Glucose 247 Intake and Output for Last 24 Hours 05/19/19 05/20/19 05/21/19 23:59 23:59 23:59 Intake Total 578 / 578 2511 / 2511 Output Total 1900 / 1900 Balance 578 / 578 611 / 611 Laboratory Tests Past 24 Hrs 05/20/19 05/20/19 05/20/19 14:15 17:50 20:30 Troponin I < 0.015 < 0.015 TSH 1.67 POC Glucose 05/21/19 05/21/19 05/21/19 16:07 11:11 06:59 POC Glucose 91 151 H 174 H 05/20/19 05/20/19 21:48 17:44 POC Glucose 123 H 186 H Assessment/Plan All Active Problems Syncope (Acute) Closed left fibular fracture (Acute) Diagnostic studies x-rays of left ankle dated 05/20/2019 were discussed and reviewed with Dr. Toi Ojeda and are consistent with minimally displaced oblique fracture of the lateral malleolus on the left without evidence of ankle mortise widening or medial clear space All previous laboratory results were reviewed. Impression: Minimally displaced oblique fracture of the lateral malleolus left ankle Third-degree heart block Hiatal hernia Diabetes mellitus type 2 Obesity Hypertension Hyperlipidemia Plan: Discussed and reviewed all treatment options with the patient her family as well as Dr. Toi Ojeda. At this time we did recommend conservative nonoperative treatment. She is comfortable in the current posterior splint she is in. She will continue with a nonweightbearing status. Rest ice elevate for any pain or swelling. Tylenol as needed for pain control. No greater than 3000 mg/day. Recommend follow-up with [facility] 7 to 10 days with repeat x-rays. Anticipate considering transitioning her to a cam boot upon follow-up. She recognizes that she will likely be nonweightbearing for 4 to 6 weeks. Patient did deny a history of nicotine dependence. I stressed the importance of tight control of her blood sugars for fracture healing. She voiced understanding. She is orthopedically stable and okay for discharge when she is cleared medically. Please do not hesitate to contact us with any further orthopedic concerns.
[2019-05-21] MEDS: Atorvastatin Calcium 10 MG Tablet 5 MG PO (21:34)
[2019-05-21 21:56] LABS: M R Staph aureus DNA By PCR Negative (Negative); Probe Check PASS; Specimen Processing Control PASS
[2019-05-21 23:15] LABS: Bedside Glucose 137 mg/dL (70-110)
[2019-05-22] VITALS (14 sets, daily range): BP systolic 111–154; BP diastolic 51–72; PULSE 67–95; RESP 14–16; TEMP 36.6–36.9; O2SAT 94–99
[2019-05-22] MEDS: oxyCODONE 5 MG Tablet PO ×3 (05:09→21:02)
[2019-05-22 06:45] LABS: Bedside Glucose 137 mg/dL (70-110)
[2019-05-22] MEDS: Ondansetron 4 MG/2 ML Vial IV ×2 (06:51→21:02)
[2019-05-22] MEDS: Lisinopril 10 MG Tablet PO (10:28)
[2019-05-22] MEDS: Ketorolac 15 MG/ML Vial IV (10:34)
[2019-05-22 11:16] LABS: Bedside Glucose 144 mg/dL (70-110)
[2019-05-22] MEDS: 0.9% Normal Saline 1,000 ML 15 ML IV (11:30)
--- NOTE | 2019-05-22 13:37 | CL.IE_ITS ---
Patient: LUCIANO BIGGS Study Date: 05/22/2019 Performing: Chaitanya Sethi MD : [id number] Age: 73 Gender: female PROCEDURES PERFORMED [id number] PACER INSERT+DUAL LEADS INDICATIONS Atrioventricular (AV) block PROCEDURE DETAILS The patient was brought to the Catheterization Lab in the postabsorptive nonsedated state. [facility] to the procedure. Local anesthetic was given subcutaneously to the le ft upper chest area with Lidocaine 2%. Incision was made to the left upper chest. Access was achieved and a guidewire was advanced into the left subclavian vein. PPM ventricular lead was inserted / posi tioned to right ventricular septal wall. PPM ventricular lead testing performed. PPM ventricular lead testing performed. PPM atrial lead was inserted / positioned to the right atrial appendage. PPM atri al lead testing performed. The Atrial lead sutured in place with 2-0 Silk. The Ventricular PM lead gordon tured in place with 2-0 Silk. PPM generator was then interrogated by the net programmer. Device pocket wa s irrigated with antibiotic Bacitracin. PPM generator was attached to the lead(s) and inserted into t he pocket. Subcutaneous closure was completed with 3-0 Vicryl. Skin closure was completed with 4-0 Vicryl. Steri-strips applied to Lt chest area. The patient tolerated the procedure well. Estimated Blood Loss: < 10 mls IMPLANTED / EX-PLANTED DEVICES IMPLANTED DEVICE(S): PPM Ventricular lead - Fighting Vehicle Systems Maintainer: [employer], Model # Ingevity MRI 7741 , Serial # [id number] PPM Atrial lead - [employer] Vehicle Systems Maintainer: [employer], Model # Ingevity MRI 7740 , Serial # [id number] PPM Generator - [employer] Vehicle Systems Maintainer: [employer], Model # Essentio MRI DR L111, Serial # [id number] DEVICE PARAMETERS ATRIAL LEAD PARAMETERS: P wave- 1.9 (mV) Current- 1.9 (mA) threshold- 1.1 (V) impedence- 601 (OHMS) VENTRICULAR LEAD PARAMETERS: R wave- 9.1 (mV) Current- 0.6 (mA) threshold- 0.4 (V) impedence- 711 (OHMS) DEVICE PARAMETERS: Mode- DDD Lower rate- 60 Upper rate- 130 CONCLUSIONS / RECOMMENDATIONS Device Conclusions: Successful implantation of a dual chamber pacemaker Device Recommendations: Follow up with Primary Care Physician PROCEDURE MEDICATIONS Versed 1 mg IV Fentanyl 25 mcg IV Fentanyl 25 mcg IV Fentanyl 25 mcg IV Oxygen: 2 L/min via nasal cannula Antibiotic given in appropriate timeframe. Signed By Chaitanya Sethi MD On 05/22/2019 13:36:37 Chaitanya Sethi MD
--- NOTE | 2019-05-22 13:52 | CASEMGMT ---
RN CM Note: several attempts to complete RN CM Assessment. Pt is @ procedure for pacemaker placement. noted in PT notes pt will need wheeled walker. Script signed. Tomasa is [employer] with [employer]. Pt does not have out of pocket benefits, so will need to stay with [employer] provider. Ginny SILVAN RN ACM
--- NOTE | 2019-05-22 13:53 | PCM.PROGNOTE ---
Patient Problems: Active and Suspected Problems Syncope (Acute) Closed left fibular fracture (Acute) Subjective: Patient seen and examined prior to pacemaker implantation. This morning she had no dizziness, lightheadedness, shortness of breath, lower extremity edema, chest pain. She is agreeable to pacemaker placement. She underwent this later in the day successfully. She will be monitored overnight. - Physical Exam General: Alert, Oriented x3, Cooperative HEENT: Atraumatic, PERRLA, EOMI, Normocephalic Neck: Supple, No JVD, Negative Carotid Bruits Lungs: Clear to auscultation, Normal air movement Cardiovascular: Regular rate, No murmurs Abdomen: Bowel Sounds Present, Soft, Non Tender Extremities: No edema, Capillary Refill Less than 3 Seconds Skin: No rashes, No breakdown Musculoskeletal: No Tenderness to Palpation of Joints or Extremities Neurological: Cranial nerves II-XII grossly intact Psych/Mental Status: Normal Affect, Appropriate, Alert and oriented to time, place, person, mood and affect Vital Signs Temp Pulse Resp BP Pulse Ox 98.5 F 77 16 111/56 L 99 05/22/19 10:25 05/22/19 10:25 05/22/19 10:25 05/22/19 10:25 05/22/19 10:25 Oxygen Delivery Method Room Air Weight: 250 lb 14.177 oz Body Mass Index (BMI) 45.8 Finger Stick Blood Glucose 247 Intake and Output for Last 24 Hours 05/20/19 05/21/19 05/22/19 23:59 23:59 23:59 Intake Total 578 / 578 3471 / 3471 Output Total 1902 / 1902 Balance 578 / 578 1569 / 1569 Laboratory Tests Past 24 Hrs 05/21/19 Unknown MRSA (PCR) Negative POC Glucose 05/22/19 05/22/19 05/21/19 11:09 06:26 22:56 POC Glucose 144 H 137 H 137 H 05/21/19 16:07 POC Glucose 91 Medical Necessity - Tobacco Use Smoking Status: Former smoker Tobacco Use: Non-smoker Assessment/Plan All Active Problems Syncope (Acute) Closed left fibular fracture (Acute) 1. Syncope - no hypoglycemia, no stroke symptoms, no seizure symptoms. Bradycardia noted on EMS arrival - 38bpm, and third-degree heart block. currently none. No brenda overnight. Trop neg. Chest pain this AM. No prior EKGs at PCPs office. Consult Cardiology. Echo with EF of 55%, stage I diastolic dysfunction, PASP of 28 mmHg, stage I diastolic dysfunction. CT brain with chronic changes. -Successful pacemaker placement today. -We will need ischemic work-up. 2. Acute oblique left distal fibula fx -patient will follow-up as an outpatient, we will not likely have surgery, plan for cast as an outpatient follow-up. 3. HTN / HLD - home meds 4. DMt2 with morbid obesity - SSI, hold orals 5. Hx Hiatal hernia - not on ppi. DVT ppx: lovenox DC planning: PTOT This patient was seen by Augusto Plunkett PA-C under the supervision of Dr. Mitchell.
[2019-05-22] MEDS: Glimepiride 4 MG Tablet PO (14:51)
[2019-05-22] MEDS: metFORMIN HCl 1,000 MG Tablet 1000 MG PO (14:51)
[2019-05-22] MEDS: Pantoprazole Sodium 40 MG Tablet PO (14:51)
--- NOTE | 2019-05-22 15:01 | CASEMGMT ---
RN CM Note: attempted to see pt for RN CM Assessment post procedure. Nursing is with pt. Will defer assessment until tomorrow. Ginny SILVAN RN ACM
[2019-05-22 15:36] LABS: Bedside Glucose 111 mg/dL (70-110)
[2019-05-22] MEDS: Atorvastatin Calcium 10 MG Tablet 5 MG PO (21:02)
[2019-05-22 22:45] LABS: Bedside Glucose 142 mg/dL (70-110)
[2019-05-23] VITALS (11 sets, daily range): BP systolic 121–159; BP diastolic 57–76; PULSE 73–94; RESP 15–18; TEMP 36.2–36.9; O2SAT 92–95
[2019-05-23] MEDS: oxyCODONE 5 MG Tablet PO ×4 (03:02→21:36)
--- NOTE | 2019-05-23 05:55 | EKG12_ITS ---
Test Reason : AM EKG Blood Pressure : / mmHG Vent. Rate : 078 BPM Atrial Rate : 078 BPM P-R Int : 198 ms QRS Dur : 126 ms QT Int : 424 ms P-R-T Axes : 035 -02 076 degrees QTc Int : 483 ms Normal sinus rhythm Left bundle branch block Abnormal ECG When compared with ECG of 20-MAY-2019 19:16, MANUAL COMPARISON REQUIRED, DATA IS UNCONFIRMED Confirmed by JERILYN DE ANDA, ARCHIE ([id number]), editorial intern MANDEEP JACOBO ([id number]) on 05/24/2019 1:41:48 PM Referred By: BIANCA Confirmed By:ARCHIE JEAN-BAPTISTE MD
--- NOTE | 2019-05-23 05:55 | RAD_ITS ---
STUDY: X-RAY CHEST REASON FOR EXAM: Female, 73 years old. Left pacemaker placement. TECHNIQUE: PA and lateral views of the chest. COMPARISON: Comparison is made with prior study dated May 20, 2019. FINDINGS: The left-sided dual-chamber pacemaker has been placed. Stable elevation of the right hemidiaphragm. Minimal increased markings at the right lung base suggesting mild atelectasis. There is no demonstrated pleural abnormality. There is mild cardiac enlargement. Normal mediastinum and stephanie. Normal visualized pulmonary arteries. There is atherosclerotic calcification of the aortic arch with tortuosity. There are diffuse degenerative changes of the visualized thoracic spine. Normal visualized ribs, clavicles, and shoulders. There is no demonstrated abnormality of the visualized soft tissue structures of the upper abdomen. RAD/Chest PA and Lateral IMPRESSION: Status post left dual-chamber pacemaker placement. There is no evidence of pneumothorax. Electronically Signed: Alex Soliman, at 9:12 EDT , Service support ,
[2019-05-23] MEDS: Lisinopril 10 MG Tablet PO (06:08)
[2019-05-23 06:31] LABS: Bedside Glucose 133 mg/dL (70-110)
--- NOTE | 2019-05-23 07:51 | RAD_ITS ---
STUDY: X-RAY CHEST REASON FOR EXAM: Female, 73 years old. Post pacemaker placement. TECHNIQUE: AP expiration view. COMPARISON: Comparison is made with prior study dated May 20, 2019. FINDINGS: EKG electrodes are seen. Stable elevation of the right hemidiaphragm with mild degree of increased markings at the right lung base suggestive of atelectasis. No evidence of pneumothorax. There is mild cardiac enlargement. A left-sided dual-chamber pacemaker is seen. Normal mediastinum and stephanie. Normal visualized pulmonary arteries. There is atherosclerotic calcification of the aortic arch with tortuosity. There are diffuse degenerative changes of the visualized thoracic spine. Normal visualized ribs, clavicles, and shoulders. There is no demonstrated abnormality of the visualized soft tissue structures of the upper abdomen. RAD/Chest 1 View IMPRESSION: Status post left-sided dual chamber pacemaker placement. There is no evidence of pneumothorax. Mild right basilar atelectasis. Electronically Signed: Alex Soliman, at 9:12 EDT , Service support ,
--- NOTE | 2019-05-23 08:47 | EKG12_ITS ---
Test Reason : CP Blood Pressure : / mmHG Vent. Rate : 078 BPM Atrial Rate : 078 BPM P-R Int : 184 ms QRS Dur : 130 ms QT Int : 418 ms P-R-T Axes : 012 -15 068 degrees QTc Int : 476 ms Normal sinus rhythm Left bundle branch block Abnormal ECG When compared with ECG of 23-MAY-2019 05:30, MANUAL COMPARISON REQUIRED, DATA IS UNCONFIRMED Confirmed by LATONIA DE ANDA, EUNICE ([id number]), commissioning editor ABILIO JOYCE ([id number]) on 05/25/2019 2:16:54 PM Referred By: WILY Confirmed By:CATE LINCOLN MD
[2019-05-23] MEDS: Pantoprazole Sodium 40 MG Tablet PO (09:01)
[2019-05-23] MEDS: Glimepiride 4 MG Tablet PO (09:01)
[2019-05-23] MEDS: metFORMIN HCl 1,000 MG Tablet 1000 MG PO ×2 (09:01→17:09)
--- NOTE | 2019-05-23 09:07 | NURSING ---
dr. Hammond in to see patient pain is muscle skelatal. no ekg change cxr normal eating cookies and milk medicated for pain
--- NOTE | 2019-05-23 09:08 | PN.CARD_ITS ---
Subjectve: Patient seen and evaluated. Appears to be doing well. Objective: Vital Signs Temp Pulse Resp BP Pulse Ox 98.1 F 79 15 151/76 H 92 05/23/19 07:52 05/23/19 08:44 05/23/19 08:44 05/23/19 08:44 05/23/19 08:44 Oxygen Delivery Method Room Air Weight: 250 lb 14.177 oz Body Mass Index (BMI) 45.8 Finger Stick Blood Glucose 247 Intake and Output for Last 24 Hours 05/21/19 05/22/19 05/23/19 23:59 23:59 23:59 Intake Total 3471 / 3471 625 / 625 Output Total 1902 / 1902 Balance 1569 / 1569 625 / 625 General: Awake, Alert, Oriented x 3 HEENT: PERRL, EOMI, Sclera Non Icteric Neck: Supple, Good ROM, No Lymph Node Enlargement Lungs: Clear to auscultation Cardiovascular: Regular Rhythm, Normal S1, Normal S2, No Murmurs, No Rubs, No Gallops Vascular: No Carotid Bruits, Normal Femoral Pulses, Normal Radial Pulses, Normal Dorsalis Pedal Pulse, Normal Posterior Tibial Pulses Abdomen: Bowel Sounds Present, Soft, Non Tender, No HSM, No Organomegaly Extremities: No Cyanosis, No Clubbing, No edema Musculoskeletal: No Erythema Skin: No Rashes Lymphatic: No Lymph Node Enlargement Neurological: No Focal Motor or Sensory Deficit Psych/Mental Status: Appropriate Rhythm: EKG: ECHO: Stress Test: Cardiac Cath: PCI: CT Surgery: Holter monitor: EPS: PPM: CXR: Chest CT Scan: Medical Necessity - Tobacco Use Smoking Status: Former smoker Tobacco Use: Non-smoker Assessment/Plan 1. Syncope * Patient presents with syncope with a left bundle branch block the duration of which is unclear as well as intermittent high-grade AV block. * Patient underwent implantation of a dual-chamber pacemaker yesterday. The pacemaker interrogation appears to be normal. Patient will be discharged for outpatient follow-up. * Stress testing will be performed as an outpatient when patient can lift arms up above head properly. * Thank you for allowing me to participate in the care of your patient. Please don't hesitate to call if any issues arise *
--- NOTE | 2019-05-23 09:10 | DCINST_ITS ---
Discharge Diet: No Restrictions Discharge Activity: May Not Drive Call your doctor if your incision/area has: Continuous Slow Oozing, Sudden Increased Bleeding, Increased Pain/ Swelling, Increased Redness, Foul Smelling Discharge, Swelling at the incision site Call your doctor if you observe: Fever of 101 or Higher, Shortness of breath, Dizziness, Fainting spells, Swelling in the ankles, Chest pain, Prolonged hiccoughing, Increased palpitations (irregular heartbeat) Suture Line Care: Avoid Pulling/Pushing, Avoid Pinching/Bending Cleanse incision/area with: Do not get Incision Wet, Keep Dressing Clean & Dry Additional Dressing/Incision Instructions:: When dressing is removed, wash and dry incision. Keep covered with a light bandage if it is rubbing against your clothing. Do not cover the incision with an airtight bandage. Change the bandage daily. Do not remove steri strips. The strips will fall off on their own. Additional Instructions: Signs and Symptoms to Report to Your Doctor at Once - call your doctor's office or Doctor's Registry ([phone]) Call 911 or go to the nearest Emergency Department if you feel you need urgent care. *Infection (fever, increased redness or swelling at the incision site, drainage from the incision increased pain at the pacemaker site) *Shortness of breath *Dizziness *Fainting spells *Swelling in the ankles *Chest pain *Prolonged hiccoughing *Increased palpitaitons (irregular heartbeat) Medications: Take your pain medication as directed. Refer to your discharge instruction sheet for a list of medications you are to take. Allergies/Adverse Reactions: Allergies Penicillins [PCN] Allergy (Verified 05/20/19 14:11) Rash Medications to take at Discharge Glimepiride 4 mg PO DAILY 05/20/19 Lisinopril [Zestril] 10 mg PO DAILY 05/20/19 Lovastatin 20 mg PO DAILY 05/20/19 Metformin HCl 1,000 mg PO BID 05/20/19 Spring-3 Fatty Acids/Fish Oil [Fish Oil 1,000 mg Capsule] 1 ea PO DAILY 05/20/19 Semaglutide [Ozempic] 0.5 mg SQ QWEEK 05/20/19 Primary Care Physician: Trevor Samuel MD [Primary Care Provider] - Test Results: Test results from this visit will be discussed in further detail at your follow- up appointment, if applicable. When: NICHOLAS ALVARENGA May AT 10 AM Proposed Discharge Date: 05/23/19
--- NOTE | 2019-05-23 11:16 | CASEMGMT ---
RN CM Assessment Presentation: Syncope, L fibular fracture, HTN, Pacemaker placement Intro role of CM and purpose of RN CM assessment to patient and her family. Pt is awake, alert and able to participate in assessment. Demographics, PCP and Pharmacy verified. Discussed plan on discharge. -Family is very supportive, however due to R arm in sling and L fibular fracture, and daughters do not feel they can manage at home. Pt is willing to go to SNF on dc and prefers [facility] in [place]. PCP: Dr. Samuel Specialists: Dr. Sethi, [facility] Preferred Pharmacy: [facility] Insurance: [employer] Prescription Benefit: yes LNOK: Living Arrangements: [place], 4 steps into home. Transportation: drives, drives DME: Discussed need for [facility]. Script was signed by physician and would need filled through [facility]. Script placed on front of chart for pt to take home. Would need to hold script until after SNF stay. HHC: none KLARISSA referral: SNF referral to [facility] SW aware. Patient DC goals: SNF DC PLAN: SNF. Ginny ADOBE ARCHITECT ACM
[2019-05-23] MEDS: Acetaminophen 325 MG Tablet 650 MG PO ×2 (13:13→19:25)
[2019-05-23] MEDS: Insulin Lispro 100 UNIT/ML INSULN.PEN SC ×2 (13:17→22:59)
[2019-05-23 13:21] LABS: Bedside Glucose 162 mg/dL (70-110)
--- NOTE | 2019-05-23 13:28 | PCM.PROGNOTE ---
Patient Problems: Active and Suspected Problems Syncope (Acute) Closed left fibular fracture (Acute) Subjective: No acute issues. Pt planning to go to SNF when approved. No palp, dizzines, LH, SOB. Had sharp right rib pain this AM. Reproducible with palp. LLE pain controlled. - Physical Exam General: Alert, Oriented x3, Cooperative HEENT: Atraumatic, PERRLA, EOMI, Normocephalic Neck: Supple, No JVD, Negative Carotid Bruits Lungs: Clear to auscultation, Normal air movement Cardiovascular: Regular rate, No murmurs Abdomen: Bowel Sounds Present, Soft, Non Tender Extremities: No edema, Capillary Refill Less than 3 Seconds Skin: No rashes, No breakdown Musculoskeletal: No Tenderness to Palpation of Joints or Extremities Neurological: Cranial nerves II-XII grossly intact Psych/Mental Status: Normal Affect, Appropriate, Alert and oriented to time, place, person, mood and affect Vital Signs Temp Pulse Resp BP Pulse Ox 98.1 F 79 15 151/76 H 92 05/23/19 07:52 05/23/19 08:44 05/23/19 08:44 05/23/19 08:44 05/23/19 08:44 Oxygen Delivery Method Room Air Weight: 250 lb 14.177 oz Body Mass Index (BMI) 45.8 Finger Stick Blood Glucose 247 Intake and Output for Last 24 Hours 05/21/19 05/22/19 05/23/19 23:59 23:59 23:59 Intake Total 3471 / 3471 625 / 625 500 / 500 Output Total 1902 / 1902 Balance 1569 / 1569 625 / 625 500 / 500 POC Glucose 05/23/19 05/23/19 05/22/19 13:14 06:07 22:06 POC Glucose 162 H 133 H 142 H 05/22/19 15:31 POC Glucose 111 H Medical Necessity - Tobacco Use Smoking Status: Former smoker Tobacco Use: Non-smoker Assessment/Plan All Active Problems Syncope (Acute) Closed left fibular fracture (Acute) 1. Syncope - no hypoglycemia, no stroke symptoms, no seizure symptoms. Bradycardia noted on EMS arrival - 38bpm, and third-degree heart block. currently none. No brenda overnight. Trop neg. Chest pain this AM. No prior EKGs at PCPs office. Consult Cardiology. Echo with EF of 55%, stage I diastolic dysfunction, PASP of 28 mmHg, stage I diastolic dysfunction. CT brain with chronic changes. -Successful pacemaker placement yesterday -Stress as outpatient. 2. Acute oblique left distal fibula fx -patient will follow-up as an outpatient, we will not likely have surgery, plan for cast as an outpatient follow-up. 3. HTN / HLD - home meds 4. DMt2 with morbid obesity - SSI, hold orals 5. Hx Hiatal hernia - not on ppi. DVT ppx: lovenox DC planning: SNF. Waiting for cert. This patient was seen by Augusto Plunkett PA-C under the supervision of Dr. Hammond.
--- NOTE | 2019-05-23 13:32 | CASEMGMT ---
Therapy informed SW that patient would like to go to [facility] at discharge. KLARISSA spoke with patient and her family and confirmed patient wants to go to [facility]. KLARISSA explained SW will make a referral and we will have to wait on insurance to approve her before she can be discharged. KLARISSA called [facility] with referral and also faxed information. KLARISSA spoke with Vicky at [facility] and they can accept patient. She will work on pre-cert. Plan: [facility] pending pre-cert. Marjorie VANCE MSW
[2019-05-23 17:15] LABS: Bedside Glucose 136 mg/dL (70-110)
[2019-05-23] MEDS: Atorvastatin Calcium 10 MG Tablet 5 MG PO (21:36)
[2019-05-23 23:06] LABS: Bedside Glucose 192 mg/dL (70-110)
[2019-05-24] VITALS (9 sets, daily range): BP systolic 124–153; BP diastolic 48–85; PULSE 74–97; RESP 14–16; TEMP 36.6–37.1; O2SAT 95–97
[2019-05-24] MEDS: Acetaminophen 325 MG Tablet 650 MG PO ×2 (03:29→10:17)
[2019-05-24 06:55] LABS: Bedside Glucose 146 mg/dL (70-110)
[2019-05-24] MEDS: metFORMIN HCl 1,000 MG Tablet 1000 MG PO ×2 (07:47→18:00)
[2019-05-24] MEDS: Pantoprazole Sodium 40 MG Tablet PO (07:47)
[2019-05-24] MEDS: Glimepiride 4 MG Tablet PO (07:48)
[2019-05-24] MEDS: Lisinopril 10 MG Tablet PO (10:17)
[2019-05-24] MEDS: Enoxaparin 40 MG/0.4 ML Syringe SC (10:18)
[2019-05-24] MEDS: Insulin Lispro 100 UNIT/ML INSULN.PEN SC (11:52)
[2019-05-24 11:56] LABS: Bedside Glucose 173 mg/dL (70-110)
--- NOTE | 2019-05-24 15:38 | CASEMGMT ---
Edita from [facility] came to [facility] and talked with patient. Patient told her that she is going home with home health. RN and SW spoke with patient extensively and she continued to say she is going home with home health and her daughter will stay with her 30/05. SW notified physician and he then spoke with patient and her and the plan is [facility]. SW notified that the plan is still [facility]. They never canceled the pre-cert request. Plan: [facility] pending insurance approval. Marjorie PARSONS
--- NOTE | 2019-05-24 16:09 | PN_ITS ---
Patient Problems: Active and Suspected Problems (Last Updated 05/24/19 @ 14:19 by Karina Islas) Syncope (Acute) Closed left fibular fracture (Acute) Subjective: Patient seen and examined. Resting with feet elevated. Denies significant pain. Awaiting pre-CERT to SNF. - Physical Exam General: Alert, Oriented x3, Cooperative HEENT: Atraumatic, PERRLA, EOMI, Normocephalic Neck: Supple, No JVD, Negative Carotid Bruits Lungs: Clear to auscultation, Normal air movement Cardiovascular: Regular rate, Regular Rhythm, Normal S1, Normal S2, No murmurs Abdomen: Bowel Sounds Present, Soft, Non Tender, Non-Distended Extremities: No clubbing, No cyanosis, No edema, Capillary Refill Less than 3 Seconds Skin: No rashes, No breakdown Musculoskeletal: No Tenderness to Palpation of Joints or Extremities Neurological: Cranial nerves II-XII grossly intact, Neuro grossly intact Psych/Mental Status: Normal Affect, Appropriate Vital Signs Temp Pulse Resp BP Pulse Ox 97.9 F 87 16 135/74 H 95 05/24/19 16:00 05/24/19 16:00 05/24/19 16:00 05/24/19 16:00 05/24/19 16:00 Oxygen Delivery Method Room Air Weight: 250 lb 14.177 oz Body Mass Index (BMI) 45.8 Finger Stick Blood Glucose 247 Intake and Output for Last 24 Hours 05/22/19 05/23/19 05/24/19 23:59 23:59 23:59 Intake Total 625 / 625 980 / 1220 1090 / 1090 Balance 625 / 625 980 / 1220 1090 / 1090 POC Glucose 05/24/19 05/24/19 05/23/19 11:45 06:49 22:57 POC Glucose 173 H 146 H 192 H 05/23/19 17:00 POC Glucose 136 H Medical Necessity - Tobacco Use Smoking Status: Former smoker Tobacco Use: Non-smoker Assessment/Plan All Active Problems (Last Updated 05/24/19 @ 14:19 by Karina Islas) Syncope (Acute) Closed left fibular fracture (Acute) 1. Syncope secondary to third-degree heart block, status post pacemaker placement 05/22/[address] Sethi-plan for cardiac follow-up as outpatient with stress test in the future when patient can lift arm overhead properly. Echocardiogram showed an EF of 55%, mild tricuspid valve insufficiency, pulmonary artery systolic pressure 28 mmHg. 2. Acute oblique left distal fibula fracture- PT/OT. PRN pain regimen. Follow- up with ortho as outpatient for possible cast placement. Nonweightbearing left lower extremity. 3. Hypertension-stable, continue home lisinopril regimen. 4. Hyperlipidemia-continue statin. 5. Type 2 diabetes mellitus-hold oral regimen. Accu-Cheks ACHS with sliding scale insulin. 6. History of hiatal hernia 7. Morbid obesity-encouraged diet and lifestyle modifications. DVT prophylaxis-Lovenox subcu Discharge planning: SNF pending pre-cert. This patient was seen by ESPINOZA Black under the supervision of Dr. Hammond.
[2019-05-24 16:35] LABS: Bedside Glucose 115 mg/dL (70-110)
[2019-05-24] MEDS: Atorvastatin Calcium 10 MG Tablet 5 MG PO (21:51)
[2019-05-24 22:01] LABS: Bedside Glucose 125 mg/dL (70-110)
[2019-05-24] MEDS: oxyCODONE 5 MG Tablet PO (22:18)
[2019-05-24] MEDS: 0.9% NaCl Peripheral Flush Adult/Peds IV ×2 (22:23→22:28)
[2019-05-24] MEDS: Ondansetron 4 MG/2 ML Vial IV (22:24)
[2019-05-25] MEDS: Acetaminophen 325 MG Tablet 650 MG PO ×2 (02:54→13:42)
[2019-05-25 02:55] VITALS: BP 124/55; PULSE 97; RESP 16; TEMP 36.6; O2SAT 94
[2019-05-25 03:00] VITALS: PULSE 90
[2019-05-25] MEDS: oxyCODONE 5 MG Tablet PO (05:40)
--- NOTE | 2019-05-25 06:28 | NURSING ---
This RN has told the patient to leave her sling on her left arm numerous times throughout the night. Each time this RN and the GEAR CUTTING MACHINE SET UP OPERATOR goes in the room it is not completely on.
[2019-05-25] MEDS: Insulin Lispro 100 UNIT/ML INSULN.PEN SC (06:57)
[2019-05-25 07:10] LABS: Bedside Glucose 152 mg/dL (70-110)
[2019-05-25 07:28] VITALS: PULSE 72
[2019-05-25 08:30] VITALS: BP 152/58; PULSE 75; RESP 16; TEMP 36.7; O2SAT 99
[2019-05-25] MEDS: Glimepiride 4 MG Tablet PO (08:36)
[2019-05-25] MEDS: metFORMIN HCl 1,000 MG Tablet 1000 MG PO (08:37)
[2019-05-25] MEDS: Pantoprazole Sodium 40 MG Tablet PO (08:37)
[2019-05-25] MEDS: Lisinopril 10 MG Tablet PO (08:37)
[2019-05-25] MEDS: Enoxaparin 40 MG/0.4 ML Syringe SC (08:37)
--- NOTE | 2019-05-25 10:32 | PCM.TXEXTCAR ---
- Diet 05/23/19 09:04 Diet: 1800 jaime ADA - Routine Orders/Code Status Routine Lab Work: - - fingerstick blood sugars ACQHS: Humalog SQ per protocol: 200-250: 5 units, 251-300:10 units, 301-350: 12 units - Wound(s) L FOOT Wound Type: BROKEN ANKLE Left Chest Wound Type: Surgical Incision - Therapies Weight Bearing: Non weight bearing Extremity Affected:: Left Lower Physical Therapy: Eval and Treat Occupational Therapy: Eval and Treat - Problem/Diagnosis (1) High degree atrioventricular block Status: Acute Current Visit: No (2) Closed left fibular fracture Status: Acute Current Visit: Yes (3) Type 2 diabetes mellitus Status: Chronic Current Visit: Yes (4) Hypertension Status: Chronic Current Visit: Yes (5) Hyperlipidemia Status: Chronic Current Visit: Yes - Allergies/Procedures Done in Hospital Allergies/Adverse Reactions: Allergies Penicillins [PCN] Allergy (Verified 05/20/19 14:11) Rash Procedures: - - pacemaker insertion 05/22/19 - Type of Care/Length of Stay Estimated LOS: Convalescent Care Less Than 30 days Type of Care Needed: Skilled Rehab Potential: Good Prognosis: Good - Additional Orders/Day of Discharge Additional Orders: follow-up with [facility] 7 to 10 days with repeat x-rays-call for appointment. Pacemaker site care: Suture Line Care: Avoid Pulling/Pushing, Avoid Pinching/Bending. Cleanse incision/area with: Do not get Incision Wet, Keep Dressing Clean & Dry. Additional Dressing/Incision Instructions:: When dressing is removed, wash and dry incision. Keep covered with a light bandage if it is rubbing against your clothing. Do not cover the incision with an airtight bandage. Change the bandage daily. Do not remove steri strips. The strips will fall off on their own. F/U NICHOLAS ALVARENGA May AT 10 AM-[facility] will serve as current which was dated: 05/20/19 Day of Discharge: 05/25/19 - Follow Up Care Primary Care Physician: Trevor Samuel MD [Primary Care Provider] - When: NICHOLAS ALVARENGA May AT 10 AM
--- NOTE | 2019-05-25 11:26 | CASEMGMT ---
Received insurance approval for patient to go to [facility]. KLARISSA called [facility] and they have no wheelchair van available. KLARISSA spoke with family and patient's can transport her via private vehicle. KLARISSA explained that [facility] will help get her into the vehicle here and when they get to [facility] he can go in and let them know he needs assist getting her inside. KLARISSA faxed orders. Completed convalescent on [facility]. KLARISSA also called [facility] and left a message for Sepideh letting her know patient's family will be bringing her and they will need assistance getting her inside the building. Plan: d/c to [facility] under skilled level of care on a convalescent stay. Family will transport patient via private vehicle. Marjorie VANCE MSW
[2019-05-25] MEDS: Hydrocortisone 2.5% Crm 1 APPLIC TOPICAL (12:18)
[2019-05-25 12:25] LABS: Bedside Glucose 154 mg/dL (70-110)
--- NOTE | 2019-05-25 12:39 | PCM.DC.SUM ---
Discharge Date and Diagnosis Date of Admission: 05/20/19 Date of Discharge: 05/25/19 - Primary Discharge Diagnosis Active and Suspected Problems (Last Updated 05/24/19 @ 14:19 by Karina Islas) 1. Syncope secondary to third-degree heart block, status post pacemaker placement 05/22/[address] Sethi 2. Acute oblique left distal fibula fracture secondary to mechanical fall as result of #1 3. Hypertension 4. Hyperlipidemia 5. Type 2 diabetes mellitus 6. History of hiatal hernia 7. Morbid obesity - Secondary Discharge Diagnosis Chronic Problems (Last Updated 05/24/19 @ 14:19 by Karina Islas) Presence of cardiac pacemaker (Chronic) Hiatal hernia (Chronic) Morbid obesity (Chronic) Type 2 diabetes mellitus (Chronic) Hypertension (Chronic) Hyperlipidemia (Chronic) Hospital Course and Treatment Imaging Results: Diagnostic Data Brain CT 05/20/19 14:24 IMPRESSION: No acute intracranial abnormality. Chronic ischemic and atrophic changes. Electronically Signed: Yuri Perez, at 15:08 EDT Tel , Service support , Ankle X-Ray 05/20/19 14:29 IMPRESSION: Oblique fracture of the distal fibula with overlying soft tissue swelling. Electronically Signed: Yuri Perez, at 15:09 EDT Tel , Service support , Chest X-Ray 05/23/19 07:51 IMPRESSION: Status post left-sided dual chamber pacemaker placement. There is no evidence of pneumothorax. Mild right basilar atelectasis. Electronically Signed: Alex Soliman, at 9:12 EDT , Service support , Dr. Sethi- Cardiology Dr. Toi Ojeda- Ortho Procedures: 2-D Echocardiogram, - - Pacemaker placement Summary of Care Provided: The patient is a 73 year old F admitted 05/20/2018 due to syncope. 1. Syncope secondary to third-degree heart block, status post pacemaker placement 05/22/[address] Sethi-plan for cardiac follow-up as outpatient with stress test in the future when patient can lift arm overhead properly. Echocardiogram showed an EF of 55%, mild tricuspid valve insufficiency, pulmonary artery systolic pressure 28 mmHg. Follow-up with cardiology office for pacemaker postop check 05/29/2019. 2. Acute oblique left distal fibula fracture as a result of mechanical fall secondary to #1- Follow-up with ortho as outpatient, Dr. Toi Ojeda for possible cast placement. Nonweightbearing left lower extremity. [place]. PT/OT. 3. Hypertension-stable, continue home lisinopril regimen. 4. Hyperlipidemia-continue statin. 5. Type 2 diabetes mellitus-continue home oral regimen. 6. History of hiatal hernia 7. Morbid obesity-encouraged diet and lifestyle modifications. General: Alert, Oriented x3, Cooperative HEENT: Atraumatic, PERRLA, EOMI, Normocephalic Neck: Supple, No JVD, Negative Carotid Bruits Lungs: Clear to auscultation, Normal air movement Cardiovascular: Regular rate, Regular Rhythm, Normal S1, Normal S2, No murmurs Abdomen: Bowel Sounds Present, Soft, Non Tender, Non-Distended Extremities: No clubbing, No cyanosis, No edema, Capillary Refill Less than 3 Seconds Skin: No rashes, No breakdown Musculoskeletal: No Tenderness to Palpation of Joints or Extremities Neurological: Cranial nerves II-XII grossly intact, Neuro grossly intact Psych/Mental Status: Normal Affect, Appropriate Patient seen and examined prior to discharge. Physical assessment as noted above. Patient is stable for discharge with follow up recommendations as noted above. This patient was seen by ESPINOZA Black under the supervision of Dr. Hammond. - Physical Exam Vital Signs Temp Pulse Resp BP Pulse Ox 98.1 F 75 16 152/58 H 99 05/25/19 08:30 05/25/19 08:30 05/25/19 08:30 05/25/19 08:30 05/25/19 08:30 Oxygen Delivery Method Room Air Weight: 250 lb 14.177 oz Body Mass Index (BMI) 45.8 Finger Stick Blood Glucose 247 Intake and Output for Last 24 Hours 05/23/19 05/24/19 05/25/19 23:59 23:59 23:59 Intake Total 980 / 1220 1790 / 1790 480 / 480 Output Total 500 / 500 Balance 980 / 1220 1290 / 1290 480 / 480 POC Glucose 05/25/19 05/25/19 05/24/19 12:17 06:55 21:47 POC Glucose 154 H 152 H 125 H 05/24/19 16:30 POC Glucose 115 H Discharge Diet: No Restrictions Discharge Activity: May Not Drive Call your doctor if your incision/area has: Continuous Slow Oozing, Sudden Increased Bleeding, Increased Pain/ Swelling, Increased Redness, Foul Smelling Discharge, Swelling at the incision site Call your doctor if you observe: Fever of 101 or Higher, Shortness of breath, Dizziness, Fainting spells, Swelling in the ankles, Chest pain, Prolonged hiccoughing, Increased palpitations (irregular heartbeat) Suture Line Care: Avoid Pulling/Pushing, Avoid Pinching/Bending Cleanse incision/area with: Do not get Incision Wet, Keep Dressing Clean & Dry Additional Dressing/Incision Instructions:: When dressing is removed, wash and dry incision. Keep covered with a light bandage if it is rubbing against your clothing. Do not cover the incision with an airtight bandage. Change the bandage daily. Do not remove steri strips. The strips will fall off on their own. Home Medications: Medications to take at Discharge Glimepiride 4 mg PO DAILY 05/20/19 Lisinopril [Zestril] 10 mg PO DAILY 05/20/19 Lovastatin 20 mg PO DAILY 05/20/19 Metformin HCl 1,000 mg PO BID 05/20/19 Semaglutide [Ozempic] 0.5 mg SQ QWEEK 05/20/19 Enoxaparin [Lovenox] 40 mg SUBCUT DAILY@1000 syringe 05/25/19 Oxycodone [Oxyir] 5 mg PO Q6H PRN PRN 7 Days #20 tab 05/25/19 Following Prescrptions Were Given to Patient: Oxycodone [Oxyir] 5 mg PO Q6H PRN PRN 7 Days #20 tab PRN Reason: Moderate Pain (4-6/10) Prescription Printed Primary Care Physician: Trevor Samuel MD [Primary Care Provider] - When: NICHOLAS ALVARENGA May AT 10 AM Additional Instructions: Signs and Symptoms to Report to Your Doctor at Once - call your doctor's office or Doctor's Registry ([phone]) Call 911 or go to the nearest Emergency Department if you feel you need urgent care. *Infection (fever, increased redness or swelling at the incision site, drainage from the incision increased pain at the pacemaker site) *Shortness of breath *Dizziness *Fainting spells *Swelling in the ankles *Chest pain *Prolonged hiccoughing *Increased palpitaitons (irregular heartbeat) Medications: Take your pain medication as directed. Refer to your discharge instruction sheet for a list of medications you are to take. Disposition: Half-Way facility Minutes spent on discharge:: 35 Patient Condition:: Stable Medical Necessity - Tobacco Use Smoking Status: Former smoker Tobacco Use: Non-smoker Meaningful Use Info Meaningful Use Diagnoses (Choose all that apply): None applicable
[2019-05-25 13:40] VITALS: BP 135/71; PULSE 74; RESP 16; TEMP 36.9; O2SAT 97
--- NOTE | 2019-05-25 14:49 | NURSING ---
report called to [facility] [place]
== END 2019-05-25 14:33 | disposition skilled nursing facility (03) | DRG 243 ==
LOC: ED 16:45 → PCU 16:50
PROVIDERS: Internal Medicine; Internal Medicine Cardiovascular Disease; Admitting Provider Hospitalist; Emergency Provider Physician Assistant Medical; Family Provider Family Medicine; PCP Family Medicine; Visit Provider Internal Medicine
DX: I44.2 Atrioventricular block, complete (principal); Z68.42 Body mass index [BMI] 45.0-49.9, adult; S82.62XA Displaced fracture of lateral malleolus of left fibula, initial encounter for closed fracture; W18.30XA Fall on same level, unspecified, initial encounter; R00.1 Bradycardia, unspecified; Y93.89 Activity, other specified; I44.7 Left bundle-branch block, unspecified; E66.01 Morbid (severe) obesity due to excess calories; E78.5 Hyperlipidemia, unspecified; I10 Essential (primary) hypertension; E11.40 Type 2 diabetes mellitus with diabetic neuropathy, unspecified; K44.9 Diaphragmatic hernia without obstruction or gangrene; Z79.84 Long term (current) use of oral hypoglycemic drugs; Z87.891 Personal history of nicotine dependence
CPT/HCPCS: 33208; 36415; 70450; 71045; 71046; 73610; 80053; 81001; 82962; 84443; 84484; 85025; 87641; 93005; 93306; 97161; 97166; 97530; 97535; 99152; 99153; 99285; J7030; J7040; J7050; P9612; Q9957; A4216; C1894; J2405

== ENCOUNTER → 2020-01-02 14:34 | Outpatient (CLI) | payer MEDICARE, SELFPAY ==
[2019-05-22 17:55] VITALS: BMI 47.2
[2020-01-02 16:28] LABS: Anion Gap 6 (5-15); BUN 12 mg/dL (7-18); BUN/Creat Ratio 20.2 RATIO (10-20); Calcium,Total 9.2 mg/dL (8.5-10.1); Chloride 102 mmol/L (98-107); Cholesterol 184 mg/dL (200); Creatinine, Serum 0.59 mg/dL (0.55-1.02); EST Glomerular Filtration Rate 106 mL/min (>60); Est Glom Filt Rate - Afr Amer 128 mL/min (>60); Glucose 133 mg/dL (74-106); High Density Lipoprotein 63 mg/dL; Sodium Level 137 mmol/L (136-145); Triglycerides 138 mg/dL; Very Low Density Lipoprotein 28 mg/dL (5-40)
== END ==
PROVIDERS: PCP Family Medicine; Referring Provider Family Medicine; Visit Provider Family Medicine
DX: I10 Essential (primary) hypertension (principal)
CPT/HCPCS: 36415; 80048; 80061

== ENCOUNTER → 2020-04-14 | Outpatient (CLI) | payer MEDICARE, SELFPAY ==
[2020-03-25 14:52] VITALS: BMI 44.8
--- NOTE | 2020-04-14 08:40 | STRESSREP ---
Stress Test Report 74-year-old lady with a history of syncope and permanent pacemaker implantation. Stress protocol: Resting EKG demonstrates normal sinus rhythm with a rate of 86 bpm and a left bundle branch block pattern. Resting blood pressure is 118/76 mmHg. 0.4 mg of regadenoson was infused per usual protocol followed Intravenous saline flush injection continuous EKG monitoring was performed. The maximum heart rate attained was 106 bpm which was 71% of maximum predicted heart rate the maximum workload was 1 metabolic equivalent. At rest there were no ST or T wave changes noted to suggest abnormal flow reserve at peak infusion nonspecific ST-T wave changes were noted with no meet the criteria for ischemia. The final blood pressure was 122/74 mmHg. Myocardial perfusion protocol. 15.0 mCi of technetium 99m sestamibi was injected at rest. 0.4 mg of regadenoson was infused per usual protocol. At peak infusion 45.0 mCi of technetium 99m sestamibi was injected stress images were obtained stress and rest images were reconstructed and compared in the short axis vertical long horizontal long axis. Gated images were also obtained. Perfusion SPECT analysis: Review of the images demonstrate normal perfusion noted in the anterior septum anterior wall lateral wall and inferior wall. A small portion of the inferoseptal wall has reduced perfusion on the stress and resting images. The above could be secondary to pacemaker redistribution artifact. No obvious ischemia is noted. The previous small inferoseptal infarct cannot be completely excluded. Gated SPECT analysis: The gated ejection fraction is 76%. Conclusion: Pharmacologic myocardial perfusion stress test with no obvious ischemia noted. Preserved ejection fraction.
== END | disposition home or self-care (01) ==
LOC: CVS 06:01
PROVIDERS: PCP Family Medicine; Referring Provider Internal Medicine Cardiovascular Disease; Visit Provider Internal Medicine Cardiovascular Disease
DX: I44.39 Other atrioventricular block (principal)
CPT/HCPCS: 78452; 93017; A9500; A4216; J2785

== ENCOUNTER → 2021-04-22 08:13 | Outpatient (CLI) | payer MEDICARE, SELFPAY ==
[2020-09-25 14:15] VITALS: BMI 45.5
[2021-04-22 10:39] LABS: Anion Gap 5 (5-15); BUN 12 mg/dL (7-18); BUN/Creat Ratio 21.5 RATIO (10-20); Calcium,Total 8.9 mg/dL (8.5-10.1); Chloride 106 mmol/L (98-107); Cholesterol 160 mg/dL (200); Creatinine, Serum 0.56 mg/dL (0.55-1.02); EST Glomerular Filtration Rate 113 mL/min (>60); Est Glom Filt Rate - Afr Amer 137 mL/min (>60); Glucose 156 mg/dL (74-106); High Density Lipoprotein 59 mg/dL; Potassium 4.5 mmol/L (3.5-5.1); Sodium Level 141 mmol/L (136-145); Triglycerides 104 mg/dL; Very Low Density Lipoprotein 21 mg/dL (5-40)
[2021-04-22 10:41] LABS: Hemoglobin A1c 6.4 % (3.8-5.6)
[2021-04-22 10:44] LABS: Microalbumin,Random Urine 12.6 mg/L (NO RANGE EST.); Microalbumin:Creatinine Ratio 13.7 mg/g CRE (<30 mg/g CRE)
== END ==
PROVIDERS: PCP Family Medicine; Referring Provider Family Medicine; Visit Provider Family Medicine
DX: E11.9 Type 2 diabetes mellitus without complications (principal)
CPT/HCPCS: 36415; 80048; 80061; 82043; 82570; 83036

== ENCOUNTER → 2022-05-07 | Outpatient (CLI) | payer MEDICARE, SELFPAY ==
[2022-05-07 10:33] LABS: Anion Gap 8 (5-15); BUN 13 mg/dL (7-18); Calcium,Total 9.2 mg/dL (8.5-10.1); Chloride 105 mmol/L (98-107); Cholesterol 134 mg/dL (200); Creatinine, Serum 0.59 mg/dL (0.55-1.02); EST Glomerular Filtration Rate 106 mL/min (>60); Est Glom Filt Rate - Afr Amer 128 mL/min (>60); Glucose 157 mg/dL (74-106); High Density Lipoprotein 60 mg/dL; Potassium 4.4 mmol/L (3.5-5.1); Sodium Level 138 mmol/L (136-145); Triglycerides 82 mg/dL; Very Low Density Lipoprotein 16 mg/dL (5-40)
[2022-05-07 10:34] LABS: Microalbumin,Random Urine 8.2 mg/L (NO RANGE EST.); Microalbumin:Creatinine Ratio 9.5 mg/g CRE (<30 mg/g CRE)
== END | disposition home or self-care (01) ==
LOC: MTLAB 08:23
PROVIDERS: PCP Family Medicine; Referring Provider Family Medicine; Visit Provider Family Medicine
DX: E11.9 Type 2 diabetes mellitus without complications (principal)
CPT/HCPCS: 36415; 80048; 80061; 82043; 82570

== ENCOUNTER → 2022-07-15 | Outpatient (CLI) | payer MEDICARE, SELFPAY ==
--- NOTE | 2022-07-15 16:07 | STRESSREP ---
Stress Test Report Pharmacologic myocardial perfusion stress test. 76-year-old lady with a history of chest pain. Stress protocol: Resting EKG demonstrates normal sinus rhythm with a rate of 73 bpm left bundle branch block is noted.0.4 mg of regadenoson was infused per usual protocol followed by Intravenous saline flush injection continuous EKG monitoring was performed. At rest there were no ST or T wave changes noted to suggest abnormal flow reserve and at peak infusion nonspecific ST changes were noted with did not meet the criteria for ischemia. Patient maintained a left bundle branch block pattern. The maximum heart rate was 94 bpm which was 64% of max impacted heart rate. Myocardial perfusion protocol. 14.4 mCi of technetium 99m sestamibi was injected at rest. 0.4 mg of regadenoson was infused per usual protocol. At peak infusion 44.7 mCi of technetium 99m sestamibi was injected stress images were obtained stress and rest images were reconstructed and compared in the short axis vertical long and horizontal long axis. Gated images were also obtained. Perfusion SPECT analysis: Review of the stress images demonstrate normal uptake of tracer noted in all areas of the myocardium. The resting images similar demonstrate normal uptake of tracer noted in all areas of the myocardium. No previous infarct is noted. Gated SPECT analysis: The gated ejection fraction is 79%. Conclusion: Normal pharmacologic myocardial perfusion stress test. Preserved ejection fraction.
== END | disposition home or self-care (01) ==
PROVIDERS: PCP Family Medicine; Referring Provider Internal Medicine Cardiovascular Disease; Visit Provider Internal Medicine Cardiovascular Disease
DX: R07.89 Other chest pain (principal)
CPT/HCPCS: 78452; 93017; A9500; A4216; J2785

== ENCOUNTER → 2022-11-16 | Outpatient (CLI) | payer MEDICARE, SELFPAY ==
[2022-11-16 11:10] LABS: Anion Gap 11 (5-15); BUN 8 mg/dL (7-18); BUN/Creat Ratio 11.8 RATIO (10-20); Calcium,Total 9.8 mg/dL (8.5-10.1); Chloride 102 mmol/L (98-107); Cholesterol 159 mg/dL (200); Creatinine, Serum 0.68 mg/dL (0.55-1.02); EST Glomerular Filtration Rate 90 mL/min (>60); Est Glom Filt Rate - Afr Amer 108 mL/min (>60); Glucose 224 mg/dL (74-106); High Density Lipoprotein 62 mg/dL; Potassium 4.4 mmol/L (3.5-5.1); Sodium Level 139 mmol/L (136-145); Triglycerides 133 mg/dL; Very Low Density Lipoprotein 27 mg/dL (5-40)
[2022-11-16 13:02] LABS: Microalbumin:Creatinine Ratio 181.5 mg/g CRE (<30 mg/g CRE)
== END | disposition home or self-care (01) ==
PROVIDERS: PCP Family Medicine; Referring Provider Family Medicine; Visit Provider Family Medicine
DX: E11.9 Type 2 diabetes mellitus without complications (principal)
CPT/HCPCS: 36415; 80048; 80061; 82043; 82570

== ENCOUNTER 2023-04-11 15:58 | Emergency (ER) | payer MEDICARE, SELFPAY ==
[2023-04-11 15:58] VITALS: BP 147/72; PULSE 65; RESP 14; TEMP 36.1; O2SAT 97; BMI 43.8
--- NOTE | 2023-04-11 16:10 | EKG12_ITS ---
Test Reason : DIZZINESS Blood Pressure : / mmHG Vent. Rate : 075 BPM Atrial Rate : 075 BPM P-R Int : 196 ms QRS Dur : 128 ms QT Int : 426 ms P-R-T Axes : 024 -09 089 degrees QTc Int : 475 ms Normal sinus rhythm Left bundle branch block Abnormal ECG Confirmed by JERILYN DE ANDA, ARCHIE ([id number]), associate editor TIMOTHY BASSETT ([id number]) on 04/13/2023 9:34:51 AM Referred By: Confirmed By:ARCHIE JEAN-BAPTISTE MD
--- NOTE | 2023-04-11 16:10 | CT_ITS ---
INDICATION: abdominal pain EXAMINATION: CT ABDOMEN AND PELVIS with CONTRAST - CT Abdomen And Pelvis W/ Contrast Injection TECHNIQUE: Multiple axial images were obtained of the abdomen and pelvis following administration of IV contrast. Planar reconstructions obtained. A radiation dose optimization technique was used for this scan. RADIATION DOSAGE (If Supplied By Facility): CTDIvol = ( 16.82 ) mGy, DLP = ( 1324.24 ) mGycm IV Contrast dosage and agent: 100 mL Isovue 300 Oral contrast: None. COMPARISON: No previous relevant examinations available for comparison. FINDINGS: LOWER THORAX: Lungs are clear. Cardiac contour is normal, no pericardial effusion. No coronary vascular calcifications noted. Transvenous pacer leads are present. Coronary vascular calcifications are noted. HEPATOBILIARY: Liver: The liver is homogeneous and shows no evidence of focal lesion. Gallbladder: The gallbladder is surgically absent. No ductal dilatation evident. Pancreas: Pancreas is normal size configuration and density. No mass is noted. Spleen: The spleen is homogeneous and normal in size. . BOWEL: Stomach: The stomach is normal in size configuration, no evidence of focal masses, abnormal calcifications. No hiatal hernia noted. Bowel: Small and large have normal configuration, no masses or bowel obstruction noted. Scattered diverticula present without evidence diverticulitis. Appendix: Short segments of the normal appendix are present.: GENITOURINARY: Adrenals: There is a LEFT adrenal mass measuring 2.4 x 3.0 cm, and Hounsfield density of approximately 31. RIGHT adrenal gland has normal appearance.. Kidneys: Kidneys have normal configuration. RIGHT kidney is high riding in position. There is a small LEFT renal cyst measuring approximately 8 mm. No evidence calcifications. There is mild caliectasis on the LEFT however no evidence of ureteral dilatation. There is a small calcification in the LEFT hemipelvis, measuring approximately 5 mm (series 2: Image 99). This appears to be within or adjacent to the RIGHT ureter. Partially obstructing stone is a consideration. There is perinephric soft tissue stranding on the LEFT.. Bladder: Normal Pelvic organs: The visualized pelvic organs are normal in size and configuration. No masses or adenopathy noted. RETROPERITONEUM: Diffuse aortic calcifications without aneurysmal dilatation. LYMPH NODES: No evidence of retroperitoneal or para-aortic masses fluid collections or adenopathy. PERITONEAL CAVITY: No ascites noted ANTERIOR ABDOMINAL WALL: Normal, no hernia identified. BONES AND SOFT TISSUES: Diffuse thoracic spondylosis. Marginal osteophyte formation present I, vacuum phenomena present at L3-4 and L4-5. No acute bony process noted. OTHER: None CT/Abdomen/Pelvis W IV Cont ONLY IMPRESSION: 1. No masses bowel obstruction abscess free fluid or free air. Short segments of the normal appendix are noted. No evidence diverticulitis or appendicitis. 2. LEFT adrenal mass, measuring approximately 2.4 x 3.0 cm with Hounsfield density of 31 Hounsfield units on postcontrast exam. Consider short-term follow-up with triple phase adrenal CT. 3. Mild caliectasis involving the LEFT kidney with mild perinephric soft tissue stranding. No distinct ureteral distention, however there is a density in the LEFT hemipelvis within or adjacent to the distal LEFT ureter measuring 5 mm at, suspicious of a partially obstructing stone. 4. No evidence of obstructive uropathy on the RIGHT. 5. Status post cholecystectomy. Electronically Signed: Prince Pérez MD at 18:19 EDT ,
--- NOTE | 2023-04-11 16:11 | ED.VIS.GI ---
HPI HPI - GI History of Present Illness Chief Complaint: Abd Pain Detail of Chief Complaint: Abdominal pain Informant: patient Abdominal Pain/Flank Pain Current Severity: 01/14 Narrative Narrative: Patient presents to the emergency department complaint of abdominal pain that started approximately 12:30 PM. Patient states that she was outside doing some gardening and she came in to the house and felt lightheaded so she laid down. That time she started developing abdominal pain and cramping as well. She denies nausea or vomiting. Patient states that she has felt this way in the past and that she is got diarrhea. She still feels little bit lightheaded. Patient feels like she needs to belch. She denies chest pain. She does have history of a pacemaker. She had prior cholecystectomy. She denies urinary symptoms. Currently she rates her pain a 3 out of 10. [facility] Medical History Abnormal EKG Closed left fibular fracture Essential (primary) hypertension Hiatal hernia High degree atrioventricular block Hyperlipidemia Left bundle branch block Morbid obesity Syncope Type 2 diabetes mellitus Home Medications glimepiride 4 mg tablet 4 mg PO DAILY diabetes 05/20/19 [History Last Taken Unknown] lisinopril 10 mg tablet 10 mg PO DAILY blood pressure 05/20/19 [History Last Taken Unknown] metformin 1,000 mg tablet 1,000 mg PO BID diabetes 05/20/19 [History Last Taken Unknown] aspirin 81 mg tablet,delayed release (Adult Low Dose Aspirin) 81 mg PO QDAY #90 tabs 03/25/20 [Rx Last Taken Unknown] omega-3 fatty acids 1,000 mg capsule (Fish Oil Concentrate) 1,000 mg PO DAILY 03/25/20 [History Last Taken Unknown] cholecalciferol (vitamin D3) 50 mcg (2,000 unit) capsule 50 mcg PO DAILY 06/07/22 [History Last Taken Unknown] cyanocobalamin (vitamin B-12) 1,000 mcg capsule 1,000 mcg PO DAILY 06/07/22 [History Last Taken Unknown] insulin glargine 100 unit/mL (3 mL) subcutaneous pen (Lantus Solostar U-100 Insulin) 10 unit subcut DAILY 01/19/23 [History Last Taken Unknown] coenzyme Q10 100 mg capsule (CoQ-10) 200 mg PO DAILY 04/11/23 [History Last Taken Unknown] Allergy/AdvReac Type Severity Reaction Status Date / Time Penicillins [PCN] Allergy Rash Verified 04/11/23 15:58 Surgical History History of ankle surgery History of permanent cardiac pacemaker placement (05/22/19) Social History Smoking Status: Former smoker ROS ROS ED ROS Narrative Lightheadedness Review of Systems ROS Unobtainable: other Constitutional Constitutional ED: Reports lethargy; Denies chills, fever(s), sweats or weight loss Eyes Eyes: Denies blurry vision, change in vision or diplopia ENT ENT ED: Denies rhinorrhea or sore throat Cardiovascular Cardiovascular: Denies chest pain, orthopnea or racing heartbeat Respiratory/Chest Respiratory/Chest: Denies cough, dyspnea, dyspnea on exertion, orthopnea or sputum Gastrointestinal Gastrointestinal: Reports abdominal pain and nausea; Denies diarrhea or vomiting Genitourinary Genitourinary ED: Denies dysuria, hematuria or urinary frequency Musculoskeletal Musculoskeletal: Denies arthralgias, back pain, myalgias or neck pain Integumentary Denies abscess, Abrasions or rash Neurologic Neurologic: Denies headache(s) or weakness Psychiatric Psychiatric: Denies anxiety, depression or suicidal thoughts Endocrine Endocrinology: Denies polydipsia, polyphagia or polyuria Hematologic/Lymphatic Hematologic/Lymphatic: Denies easy bleeding, easy bruising or lymphadenopathy Allergic/Immunologic Allergic/Immunologic ED: Denies mouth swelling, tongue swelling or urticaria EXAM Physical Exam Const Vital Signs: 04/11/23 15:58 04/11/23 19:17 Temperature 97 F L Temperature Source Temporal Pulse Rate 65 78 Respiratory Rate 14 16 Blood Pressure 147/72 H 141/69 H Blood Pressure Mean 97 93 Pulse Ox 97 Oxygen Delivery Method Room Air Room Air Positive well nourished and well developed General Appearance ED: well developed and NAD HEENT Reports TM's clear and moist mucous membranes normocephalic and atraumatic; Negative for trauma or tenderness Tympanic Membrane ED: Yes TM's clear Eyes PERRL and EOMs intact bilaterally General Eye ED: Negative for pale conjunctiva or scleral icterus Neck no lymphadenopathy, supple and no JVD General: Negative for tenderness Chest Wall inspection of chest normal and palpation of chest normal Chest: Negative for tenderness Resp normal respiratory effort and clear to auscultation bilaterally Effort and Inspection: Negative for respiratory distress or pain with movement Auscultation: Negative for rhonchi, wheezes or diminished lung sounds Cardio regular rate, regular rhythm, S1 normal heart sound, S2 normal heart sound and no murmurs Peripheral Pulses: pulses 2+ throughout GI normal to inspection, nondistended, normoactive bowel sounds, soft to palpation, non-distended and no masses GI Narrative: Tender to palpation over the epigastric region with guarding. There is no rebound, rigidity, or. Signs. No masses palpated. Back/Spine no CVA tenderness and no thoracic nor lumbar tenderness Extremity normal to inspection General Extremety ED: Negative for edema General Extremity: Negative for edema Neuro oriented x3, CN's II-XII intact bilaterally, no sensory deficits noted and gait normal Sensorium / Orientation: awake, alert, oriented to person, oriented to place and oriented to time Motor Exam: strength 5/5 throughout and strength abnormal Psych mental status grossly normal Skin no rashes or lesions noted and no wounds MDM MDM MDM Narrative Medical decision making narrative: Patient presents with dizziness and abdominal pain. In the differential would be vasovagal episode versus vertigo versus acute coronary syndrome. Abdominal pain could be related to bowel obstruction versus kidney stone versus AAA versus other etiology. IV line established. EKG obtained arrival shows sinus rhythm with a rate of 75 bpm with left bundle branch block. CBC with differential that showed a slightly elevated white count of 12.0 with a hemoglobin of 13.9 and a hematocrit of 42.5 as well as platelets 214. Chemistries unremarkable. Lactate was normal 1.4. LFTs unremarkable. Troponin was normal at 6. Lipase normal at 35. Urinalysis normal. Patient had a CT scan of the abdomen pelvis that showed a left adrenal mass for which they recommended follow-up CT triple phase imaging. Patient had a questionable left ureteral stone but this was not definite and patient clinically not presenting like a kidney stone and she has no blood in her urine. Results discussed with patient and her and I did give her a copy of her CT report and she will follow-up with her primary care physician for further imaging of her adrenal on the left. This point etiology of dizziness uncertain but suspect possibly vasovagal episode. Lab Data Attestation: I reviewed the patient's lab results. Labs: Laboratory Results - last 24 hr 04/11/23 04/11/23 04/11/23 16:25 16:25 16:25 WBC 12.0 H RBC 4.50 Hgb 13.9 Hct 42.5 MCV 94.4 MCH 30.9 MCHC 32.7 RDW Std Deviation 47.6 H RDW Coeff of Rosalba 13.7 Plt Count 214 MPV 9.7 Immature Gran % (Auto) 0.300 Neut % (Auto) 85.5 H Lymph % (Auto) 9.6 L Claiborne % (Auto) 3.8 Eos % (Auto) 0.3 Baso % (Auto) 0.5 Absolute Neuts (auto) 10.2 H Absolute Lymphs (auto) 1.15 Nucleated RBC % 0 Sodium 132 L Potassium 4.5 Chloride 99 Carbon Dioxide 27.0 Anion Gap 6 BUN 16 Creatinine 0.60 Estim Creat Clear Calc 38.44 Est GFR (MDRD) Af Amer 126 Est GFR (MDRD) Non-Af 104 BUN/Creatinine Ratio 26.8 H Glucose 181 H Lactic Acid 1.4 Calcium 9.3 Total Bilirubin 0.30 AST 9 L ALT 18 Alkaline Phosphatase 54 Troponin I High Sens 6 Total Protein 7.2 Albumin 3.5 Globulin 3.7 Albumin/Globulin Ratio 0.9 Lipase 35 Urine Color Urine Clarity Urine pH Ur Specific Vina Urine Protein Urine Glucose (UA) Urine Ketones Urine Occult Blood Urine Nitrite Urine Bilirubin Urine Urobilinogen Ur Leukocyte Esterase Urine RBC Urine WBC Ur Squamous Epith Cells Urine Bacteria Urine Mucus 04/11/23 19:40 WBC RBC Hgb Hct MCV MCH MCHC RDW Std Deviation RDW Coeff of Rosalba Plt Count MPV Immature Gran % (Auto) Neut % (Auto) Lymph % (Auto) Claiborne % (Auto) Eos % (Auto) Baso % (Auto) Absolute Neuts (auto) Absolute Lymphs (auto) Nucleated RBC % Sodium Potassium Chloride Carbon Dioxide Anion Gap BUN Creatinine Estim Creat Clear Calc Est GFR (MDRD) Af Amer Est GFR (MDRD) Non-Af BUN/Creatinine Ratio Glucose Lactic Acid Calcium Total Bilirubin AST ALT Alkaline Phosphatase Troponin I High Sens Total Protein Albumin Globulin Albumin/Globulin Ratio Lipase Urine Color Yellow Urine Clarity Clear Urine pH 7.0 Ur Specific Vina 1.005 Urine Protein Negative Urine Glucose (UA) 100 H Urine Ketones 15 H Urine Occult Blood Negative Urine Nitrite Negative Urine Bilirubin Negative Urine Urobilinogen Normal Ur Leukocyte Esterase Negative Urine RBC 0 SEEN Urine WBC 0 SEEN Ur Squamous Epith Cells 0 SEEN Urine Bacteria 0 SEEN Urine Mucus 0 SEEN Radiography Diagnostic Testing: Clinical Impression(s) from Imaging Studies Abdomen/Pelvis CT 04/11/23 16:10 IMPRESSION: 1. No masses bowel obstruction abscess free fluid or free air. Short segments of the normal appendix are noted. No evidence diverticulitis or appendicitis. 2. LEFT adrenal mass, measuring approximately 2.4 x 3.0 cm with Hounsfield density of 31 Hounsfield units on postcontrast exam. Consider short-term follow-up with triple phase adrenal CT. 3. Mild caliectasis involving the LEFT kidney with mild perinephric soft tissue stranding. No distinct ureteral distention, however there is a density in the LEFT hemipelvis within or adjacent to the distal LEFT ureter measuring 5 mm at, suspicious of a partially obstructing stone. 4. No evidence of obstructive uropathy on the RIGHT. 5. Status post cholecystectomy. Electronically Signed: Prince Pérez MD at 18:19 EDT , EKG Initial EKG: Attestation: I personally reviewed and interpreted this EKG as follows: Comments: Sinus rhythm with a rate of 75 bpm with left bundle branch block Discharge Plan Triage Chief Complaint: Abd Pain ED Provider: Ashlyn Duggan Dx/Rx/DC Orders Clinical Impression: Dizziness, Abdominal pain Instructions: ED Abdominal Pain Unkn Cause Fem, ED Dizziness, Uncertain Cause Prescriptions: No Action omega-3 fatty acids [Fish Oil Concentrate] 1,000 mg capsule 1,000 mg PO DAILY aspirin [Adult Low Dose Aspirin] 81 mg tablet,delayed release (DR/EC) 81 mg PO QDAY Qty: 90 3RF cyanocobalamin (vitamin B-12) 1,000 mcg capsule 1,000 mcg PO DAILY cholecalciferol (vitamin D3) 50 mcg (2,000 unit) capsule 50 mcg PO DAILY insulin glargine [Lantus Solostar U-100 Insulin] 100 unit/mL (3 mL) insulin pen 10 unit subcut DAILY metformin 1,000 MG tablet 1,000 mg PO BID lisinopril 10 MG tablet 10 mg PO DAILY glimepiride 4 MG tablet 4 mg PO DAILY coenzyme Q10 [CoQ-10] 100 mg Capsule 200 mg PO DAILY Primary Care Provider: Trevor Samuel Referrals: Trevor Samuel MD [Primary Care Provider] - 3-5 Days Disposition Disposition: Home, Self Care
[2023-04-11] MEDS: 0.9% Normal Saline 1,000 ML 125 ML IV (16:28)
[2023-04-11 16:32] LABS: Absolute Lymphocyte Count 1.15 X10^3/uL (0.83-4.51); Absolute Neutrophil Count 10.2 X10^3/uL (2.0-7.7); Basophil# 0.06 X10^3/uL; Basophil% 0.5 % (0-1); Eosinophil# 0.03 X10^3/uL; Eosinophils% 0.3 % (0-5); Hematocrit 42.5 % (37-47); Hemoglobin 13.9 g/dL (12.0-15.0); Lymphocyte # 1.15 X10^3/ul (0.83-4.51); Lymphocyte % 9.6 % (19-41); Mean Corp Hgb Conc 32.7 g/dL (32-36); Mean Corpuscular Hgb 30.9 pg (27.0-32.0); Mean Corpuscular Volume 94.4 fL (81-99); Mean Platelet Vol. 9.7 fl (6.2-12.0); Monocyte# 0.46 X10^3/uL; Monocyte% 3.8 % (0-10); NRBC Flagged by Analyzer 0 % (0-5); Neutrophil # 10.24 X10^3/uL (2.7-7.7); Neutrophil % 85.5 % (47-70); Platelet Count 214 K/mm3 (150-450); RBC Distribution Width CV 13.7 % (11.6-14.6); RBC Distribution Width SD 47.6 fl (35.1-43.9)
[2023-04-11 16:59] LABS: ALB/GLOB Ratio 0.9 RATIO (0.9-2.4); AST(SGOT) 9 U/L (15-37); Alanine Aminotransfer ALT/SGPT 18 U/L (13-56); Albumin, Serum 3.5 g/dL (3.2-5.0); Alkaline Phosphatase 54 U/L (45-117); Anion Gap 6 (5-15); BUN 16 mg/dL (7-18); BUN/Creat Ratio 26.8 RATIO (10-20); Calcium,Total 9.3 mg/dL (8.5-10.1); Chloride 99 mmol/L (98-107); EST Glomerular Filtration Rate 104 mL/min (>60); Est Glom Filt Rate - Afr Amer 126 mL/min (>60); Estimated Creatinine Clearance 38.44 ml/min; Globulin 3.7 g/dL (2.2-4.2); Glucose 181 mg/dL (74-106); Lipase 35 U/L (13-75); Potassium 4.5 mmol/L (3.5-5.1); Protein, Total 7.2 g/dL (6.4-8.2); Sodium Level 132 mmol/L (136-145); Troponin-I HS 6 pg/mL (3.0-54.0)
[2023-04-11 17:12] LABS: Lactic Acid 1.4 mmol/L (0.4-1.9)
[2023-04-11 19:17] VITALS: BP 141/69; PULSE 78; RESP 16
[2023-04-11 19:45] LABS: Bacteria 0 SEEN /hpf (None Seen); Mucous, Urine 0 SEEN /hpf (<or=2+); Red Blood Cells-Urine 0 SEEN /hpf (0-5); Squamous Epithelial Cells - UA 0 SEEN /hpf (5-10); White Blood Cells 0 SEEN /hpf (0-5)
[2023-04-11 19:52] LABS: Color, Urine Yellow (Yellow); Glucose, Dipstick 100 mg/dl (Normal); Ketone-Dipstick 15 mg/dl (Negative); Leukocyte Esterase-Dipstick Negative /ul (Negative); Nitrite-Dipstick Negative (Negative); Occult Blood-Urine Negative /ul (Negative); Protein-Dipstick Negative (Negative); Specific Gravity, Urine 1.005 (1.002-1.030); Urine Bilirubin Dipstick Negative (Negative); Urine Clarity Clear (Clear); Urine Urobilinogen Normal (Normal)
[2023-04-11 20:40] VITALS: BP 141/69; PULSE 78; RESP 16; O2SAT 93
== END 2023-04-11 20:41 | disposition home or self-care (01) ==
PROVIDERS: Emergency Provider Emergency Medicine; PCP Family Medicine; Visit Provider Emergency Medicine
DX: R42 Dizziness and giddiness (principal); E11.9 Type 2 diabetes mellitus without complications; Z79.4 Long term (current) use of insulin; R10.9 Unspecified abdominal pain; I10 Essential (primary) hypertension; E78.5 Hyperlipidemia, unspecified; Z79.84 Long term (current) use of oral hypoglycemic drugs; Z79.82 Long term (current) use of aspirin; Z79.899 Other long term (current) drug therapy; Z87.891 Personal history of nicotine dependence; Z90.49 Acquired absence of other specified parts of digestive tract; Z95.0 Presence of cardiac pacemaker
CPT/HCPCS: 74177; 80053; 81001; 83605; 83690; 84484; 85025; 93005; 96360; 96361; 99283; J7030; Q9967; A4216

== ENCOUNTER → 2023-06-30 | Outpatient (CLI) | payer MEDICARE, SELFPAY | END | disposition home or self-care (01) | LOC: LABSPEC 10:12 | PROVIDERS: PCP Family Medicine; Referring Provider Family Medicine; Visit Provider Family Medicine | DX: R35.0 Frequency of micturition (principal) | CPT/HCPCS: 87086 ==

== ENCOUNTER → 2023-09-15 | Outpatient (CLI) | payer MEDICARE, SELFPAY ==
--- NOTE | 2023-09-15 14:23 | RAD_ITS ---
STUDY: X-RAY - LUMBAR SPINE REASON FOR EXAM: Female, 77 years old. Sciatica. TECHNIQUE: 4 view(s) of the lumbar spine were obtained. COMPARISON: None FINDINGS: Osteopenia. Normal lumbar lordosis. Mild levoscoliosis. 7 mm of anterolisthesis of L4 on L5. Diffuse lower thoracic and lumbosacral facet sclerosis. Diffuse intervertebral disc space narrowing most marked in the lower thoracic spine and at L4-5. Phleboliths and clips projected over the right upper quadrant, presumably cholecystectomy clips. RAD/L/S Spine Min 4 Views IMPRESSION: Osteopenia with diffuse lower thoracic and lumbosacral spondylosis. Electronically Signed: Inocente Kinney MD at 15:17 EST ,
[2023-09-15 18:08] LABS: Microalbumin,Random Urine 33.7 mg/L (NO RANGE EST.); Microalbumin:Creatinine Ratio 25.5 mg/g CRE (<30 mg/g CRE)
[2023-09-15 18:09] LABS: ALB/GLOB Ratio 0.9 RATIO (0.9-2.4); AST(SGOT) 11 U/L (15-37); Alanine Aminotransfer ALT/SGPT 24 U/L (13-56); Albumin, Serum 3.6 g/dL (3.2-5.0); Alkaline Phosphatase 63 U/L (45-117); Anion Gap 5 (5-15); BUN 22 mg/dL (7-18); BUN/Creat Ratio 29.9 RATIO (10-20); Calcium,Total 9.5 mg/dL (8.5-10.1); Chloride 98 mmol/L (98-107); Cholesterol 209 mg/dL (200); Creatinine, Serum 0.74 mg/dL (0.55-1.02); EST Glomerular Filtration Rate 82 mL/min (>60); Est Glom Filt Rate - Afr Amer 99 mL/min (>60); Globulin 4.2 g/dL (2.2-4.2); Glucose 122 mg/dL (74-106); High Density Lipoprotein 64 mg/dL; Potassium 4.2 mmol/L (3.5-5.1); Protein, Total 7.8 g/dL (6.4-8.2); Sodium Level 133 mmol/L (136-145); Triglycerides 153 mg/dL; Very Low Density Lipoprotein 31 mg/dL (5-40)
== END | disposition home or self-care (01) ==
LOC: MTLAB 14:21
PROVIDERS: PCP Family Medicine; Referring Provider Family Medicine; Visit Provider Family Medicine
DX: M54.30 Sciatica, unspecified side (principal); E11.9 Type 2 diabetes mellitus without complications
CPT/HCPCS: 36415; 72110; 80053; 80061; 82043; 82570

== ENCOUNTER → 2023-12-15 | Outpatient (CLI) | payer MEDICARE, SELFPAY ==
[2023-12-15 18:01] LABS: Anion Gap 7 (5-15); BUN 12 mg/dL (7-18); BUN/Creat Ratio 19.4 RATIO (10-20); Calcium,Total 9.7 mg/dL (8.5-10.1); Chloride 101 mmol/L (98-107); Cholesterol 170 mg/dL (200); Creatinine, Serum 0.62 mg/dL (0.55-1.02); EST Glomerular Filtration Rate 99 mL/min (>60); Est Glom Filt Rate - Afr Amer 120 mL/min (>60); Glucose 94 mg/dL (74-106); High Density Lipoprotein 61 mg/dL; Potassium 4.1 mmol/L (3.5-5.1); Sodium Level 133 mmol/L (136-145); Triglycerides 104 mg/dL; Very Low Density Lipoprotein 21 mg/dL (5-40)
[2023-12-15 18:40] LABS: Microalbumin,Random Urine 21.2 mg/L (NO RANGE EST.); Microalbumin:Creatinine Ratio 22.6 mg/g CRE (<30 mg/g CRE)
[2023-12-16 10:42] LABS: Hemoglobin A1c 5.3 % (3.8-5.6)
== END | disposition home or self-care (01) ==
LOC: MTLAB 14:32
PROVIDERS: PCP Family Medicine; Referring Provider Family Medicine; Visit Provider Family Medicine
DX: E11.9 Type 2 diabetes mellitus without complications (principal)
CPT/HCPCS: 36415; 80048; 80061; 82043; 82570; 83036

== ENCOUNTER → 2024-04-24 | Outpatient (CLI) | payer MEDICARE, SELFPAY ==
--- NOTE | 2024-04-24 14:29 | ECHOD_ITS ---
Reason For Study: LBBB Procedure This was a 2D Doppler, Color Flow transthoracic echocardiogram. Exam performed in department. Left Ventricle Normal LV size. Mild concentric left ventricular hypertrophy. Left ventricular systolic function is normal. The estimated ejection fraction is 65 %. Stage 1 diastolic dysfunction. No regional wall motion abnormalities noted. Right Ventricle Normal RV size. ICD or pacer leads identified within the right ventricle. Normal systolic function. Atria Normal left atrium. Normal right atrium. Mitral Valve Normal mitral valve. Tricuspid Valve Normal tricuspid valve. Mild tricuspid valve insufficiency. Pulmonary artery systolic pressure is 24 mmHg. Aortic Valve Trisinus/trileaflet aortic valve. Pulmonic Valve Normal pulmonic valve. Great Vessels Normal aortic root. Pericardium/Pleural No pericardial effusion. MMode/2D Measurements & Calculations LVIDd: 4.4 cm IVSd: 1.3 cm LVOT diam: 2.0 cm LVIDs: 2.4 cm LVPWd: 1.2 cm LVOT area: 3.2 cm2 RVDd: 3.7 cm FS: 44.4 % Ao root diam: 3.1 cm LAV(MOD-bp): 40.9 ml LVAd ap4: 20.3 cm2 LAV(MOD-bp) Indexed: 20.9 ml/m2 LVLd ap4: 7.3 cm LAV(MOD-sp2): 45.9 ml EDV(MOD-sp4): 44.6 ml LAV(MOD-sp4): 36.5 ml EDV(sp4-el): 47.8 ml LVAs ap4: 11.5 cm2 LVLs ap4: 5.9 cm ESV(MOD-sp4): 18.6 ml ESV(sp4-el): 18.9 ml EF(MOD-sp4): 58.4 % EF(sp4-el): 60.5 % LVAd ap2: 23.2 cm2 SV(MOD-sp4): 26.0 ml SV(MOD-sp2): 39.4 ml LVLd ap2: 7.5 cm EDV(MOD-sp2): 56.8 ml EDV(sp2-el): 60.6 ml LVAs ap2: 11.1 cm2 LVLs ap2: 5.9 cm ESV(MOD-sp2): 17.4 ml ESV(sp2-el): 17.5 ml EF(MOD-sp2): 69.4 % SV(sp4-el): 28.9 ml LA dimension(2D): 3.6 cm LA A4 area: 15.8 cm2 RA A4 area: 15.7 cm2 TAPSE: 2.1 cm Time Measurements MV dec time: 0.22 sec Doppler Measurements & Calculations MV E max ifeanyi: 93.7 cm/sec Lat Peak E' Ifeanyi: 7.6 cm/sec Med Peak E' Ifeanyi: 5.4 cm/sec MV A max ifeanyi: 131.8 cm/sec E/E' lat: 12.4 E/E' med: 17.4 MV E/A: 0.71 MV V2 max: 146.2 cm/sec Ao V2 max: 163.5 cm/sec MV max P.5 mmHg MV dec slope: 425.1 cm/sec2 Ao max P.7 mmHg MV V2 mean: 96.8 cm/sec Ao V2 mean: 120.7 cm/sec MV mean P.1 mmHg Ao mean P.5 mmHg MV V2 VTI: 39.0 cm Ao V2 VTI: 42.0 cm AV (velocity ratio): 0.73 MVA(VTI): 2.5 cm2 SHANA(I,D): 2.3 cm2 SHANA(V,D): 2.8 cm2 LV V1 max: 145.1 cm/sec SV(LVOT): 96.8 ml PA V2 max: 95.7 cm/sec LV V1 max P.4 mmHg PA max PG (full): 0.10 mmHg LV V1 mean P.4 mmHg LV V1 mean: 98.5 cm/sec LV V1 VTI: 30.6 cm PI end-d ifeanyi: 90.9 cm/sec TR max ifeanyi: 227.9 cm/sec TR max P.8 mmHg ECHO/Echo Complete Interpretation Summary Normal LV size. Left ventricular systolic function is normal. The estimated ejection fraction is 65 %. ICD or pacer leads identified within the right ventricle. Mild concentric left ventricular hypertrophy. Stage 1 diastolic dysfunction. Structurally normal valves. Ordering Physician: Chaitanya Sethi Referring Physician: Trevor Samuel Performed By: Daphne Mckeon RDCS
== END | disposition home or self-care (01) ==
PROVIDERS: PCP Family Medicine; Referring Provider Internal Medicine Cardiovascular Disease; Visit Provider Internal Medicine Cardiovascular Disease
DX: I44.7 Left bundle-branch block, unspecified (principal); E66.01 Morbid (severe) obesity due to excess calories; E11.9 Type 2 diabetes mellitus without complications; E78.5 Hyperlipidemia, unspecified; I10 Essential (primary) hypertension; I44.39 Other atrioventricular block; R07.89 Other chest pain; Z95.0 Presence of cardiac pacemaker
CPT/HCPCS: 93306

== ENCOUNTER → 2024-09-10 | Outpatient (CLI) | payer MEDICARE, SELFPAY ==
[2024-09-10 10:31] LABS: Anion Gap 7 (5-15); BUN 11 mg/dL (7-18); BUN/Creat Ratio 20.6 RATIO (10-20); Calcium,Total 9.2 mg/dL (8.5-10.1); Chloride 104 mmol/L (98-107); Cholesterol 163 mg/dL (200); Creatinine, Serum 0.54 mg/dL (0.55-1.02); EST Glomerular Filtration Rate 118 mL/min (>60); Est Glom Filt Rate - Afr Amer 142 mL/min (>60); Glucose 140 mg/dL (74-106); High Density Lipoprotein 64 mg/dL; Sodium Level 137 mmol/L (136-145); Triglycerides 99 mg/dL; Very Low Density Lipoprotein 20 mg/dL (5-40)
== END | disposition home or self-care (01) ==
PROVIDERS: PCP Family Medicine; Referring Provider Family Medicine; Visit Provider Family Medicine
DX: E11.9 Type 2 diabetes mellitus without complications (principal)
CPT/HCPCS: 36415; 80048; 80061

== ENCOUNTER → 2024-09-24 | Outpatient (CLI) | payer MEDICARE, SELFPAY ==
--- NOTE | 2024-09-24 12:43 | CT_ITS ---
STUDY: CT ABDOMEN AND PELVIS WITH CONTRAST REASON FOR EXAM: Female, 79 years old. 2 month history of right lower quadrant pain. Diarrhea. RADIATION DOSAGE (If Supplied By Facility): CTDIvol = ( 15.44 ) mGy, DLP = ( 1083.75 ) mGycm TECHNIQUE: Transaxial images were obtained from the dome of the diaphragm to the symphysis pubis with oral contrast. Oral and amp; IV Gastrografin and amp; 100mL Isovue-300 was administered. Sagittal and coronal images were reconstructed. Individualized dose optimization techniques were used for this CT. COMPARISON: Comparison is made with prior study dated April 11, 2023. FINDINGS: The visualized lung bases are unremarkable. Coronary artery calcification. Normal liver. There are surgical clips in the gallbladder fossa consistent with a prior cholecystectomy. Normal spleen. Normal pancreas. There is a small, circumscribed, smooth, low attenuation left adrenal mass, consistent with an adrenal adenoma. This is unchanged. Normal right adrenal gland. Normal right kidney. Normal left kidney. Normal visualized stomach. Normal small intestine. There are multiple colonic diverticula consistent with diverticulosis. The appendix is visualized and appears normal. There is scattered atherosclerotic calcification of the abdominal aorta, without a demonstrated aneurysm. Normal inferior vena cava. Normal retroperitoneum. Normal urinary bladder. Normal abdominal wall. There degenerative changes of the visualized lumbar spine. CT/Abdomen/Pelvis WITH Contrast IMPRESSION: Stable left adrenal hypodense mass. Status post cholecystectomy. Scattered sigmoid diverticula. Electronically Signed: Alex Soliman MD at 15:28 EST ,
[2024-09-24 12:47] LABS: Absolute Lymphocyte Count 2.47 X10^3/uL (0.83-4.51); Absolute Neutrophil Count 8.9 X10^3/uL (2.0-7.7); Basophil# 0.08 X10^3/uL; Basophil% 0.6 % (0-1); Eosinophils% 0.8 % (0-5); Hematocrit 42.3 % (37-47); Hemoglobin 13.8 g/dL (12.0-15.0); Lymphocyte # 2.47 X10^3/ul (0.83-4.51); Lymphocyte % 19.9 % (19-41); Mean Corp Hgb Conc 32.6 g/dL (32-36); Mean Corpuscular Hgb 30.9 pg (27.0-32.0); Mean Corpuscular Volume 94.6 fL (81-99); Mean Platelet Vol. 9.4 fl (6.2-12.0); Monocyte% 6.4 % (0-10); NRBC Flagged by Analyzer 0 % (0-5); Neutrophil # 8.93 X10^3/uL (2.7-7.7); Neutrophil % 71.9 % (47-70); Platelet Count 259 K/mm3 (150-450); RBC Distribution Width SD 48.1 fl (35.1-43.9); Red Blood Count 4.47 M/mm3 (4.2-5.4); White Blood Count 12.4 K/mm3 (4.4-11.0)
[2024-09-24 13:18] LABS: ALB/GLOB Ratio 1.1 RATIO (0.9-2.4); AST(SGOT) 14 U/L (15-37); Alanine Aminotransfer ALT/SGPT 17 U/L (13-56); Albumin, Serum 3.8 g/dL (3.2-5.0); Alkaline Phosphatase 57 U/L (45-117); Anion Gap 8 (5-15); BUN 16 mg/dL (7-18); BUN/Creat Ratio 21.8 RATIO (10-20); Chloride 104 mmol/L (98-107); Creatinine, Serum 0.73 mg/dL (0.55-1.02); EST Glomerular Filtration Rate 82 mL/min (>60); Est Glom Filt Rate - Afr Amer 99 mL/min (>60); Globulin 3.4 g/dL (2.2-4.2); Glucose 112 mg/dL (74-106); Protein, Total 7.2 g/dL (6.4-8.2); Sodium Level 137 mmol/L (136-145)
== END | disposition home or self-care (01) ==
LOC: CT 12:25
PROVIDERS: PCP Family Medicine; Referring Provider Family Medicine; Visit Provider Family Medicine
DX: R10.9 Unspecified abdominal pain (principal)
CPT/HCPCS: 36415; 74177; 80053; 85025; Q9967